=== PATIENT | male | born 1960 | race American Indian/Alaskan Native ===

== ENCOUNTER 2021-05-27 16:36 | Inpatient (IN) | payer MEDICAID ==
[2021-05-27] MEDS ORDERED: ALBUTEROL 2.5 MG/3 ML NEBU IH ONE (17:19)
[2021-05-27] MEDS ORDERED: IPRATROPIUM 0.02% NEBU 2.5 ML IH ONE (17:19)
[2021-05-27] MEDS ORDERED: FUROSEMIDE 40 MG/4 ML INJ IV ONE (17:19)
[2021-05-27] MEDS ORDERED: methylPREDNISolone Sod Succinate 125 MG/2 ML INJ IV ONE (17:20)
--- NOTE | 2021-05-27 17:47 | XRay Report ---
CHEST 1 VIEW 05/27/2021 5:22 PM INDICATION / CLINICAL INFORMATION: Dyspnea. COMPARISON: None available. FINDINGS: SUPPORT DEVICES: None. HEART / MEDIASTINUM: No significant abnormality. LUNGS / PLEURA: Mild patchy bilateral lower lung opacities. No pneumothorax. ADDITIONAL FINDINGS: No significant additional findings. IMPRESSION: 1. Mild patchy bilateral lower lung opacities that could indicate atypical pneumonia. Signer Name: Chris Hatch MD Signed: 05/27/2021 5:43 PM Workstation Name: [id number]
[2021-05-27 18:37] LABS: ABG Base Excess 2.3 mmol/L (-2.0-3.0); ABG HCO3 28.3 mmol/L (20.0-26.0); ABG Methemoglobin 0.5 % (0.0-1.5); ABG Oxygen Saturation 95.2 % (95.0-99.0); ABG PH 7.371 pH Units (7.350-7.450); ABG PO2 74.9 mm Hg (80.0-90.0)
[2021-05-27] MEDS ORDERED: cefTRIAXone/NS 1 GM/50 ML 1 GM/50 ML BAG IV ONE (18:38)
[2021-05-27] MEDS ORDERED: METOPROLOL TARTRATE 5 MG/5 ML INJ IV ONE ×2 (19:01→19:02)
[2021-05-27 19:03] LABS: Amphetamine Screen,Urine Negative; Benzodiazepines Screen,Urine Negative; Cannabinoid Screen,Urine Negative; Cocaine Screen,Urine Negative; Methadone Screen,Urine Negative; Opiate Screen,Urine Negative
[2021-05-27 19:08] LABS: Bilirubin,Urine NEG (Negative); Blood,Urine SM (Negative); Color,Urine Straw (Yellow); RBC,Urine < 1.0 /HPF (0.0-6.0); Urobilinogen,Urine < 2.0 mg/dL (<2.0)
[2021-05-27 19:46] LABS: Basophils # (Auto) 0.1 K/mm3 (0.0-0.1); Basophils % (Auto) 1.7 % (0.0-1.8); Eosinophils # (Auto) 0.1 K/mm3 (0.0-0.4); Eosinophils % (Auto) 1.2 % (0.0-4.3); Hematocrit 44.4 % (35.5-45.6); Hemoglobin 14.3 gm/dl (11.8-15.2); Lymphocytes # (Auto) 0.7 K/mm3 (1.2-5.4); Lymphocytes % (Auto) 15.6 % (13.4-35.0); Mean Corpuscular HGB Conc 32 % (32-34); Mean Corpuscular Volume 106 fl (84-94); Monocytes # (Auto) 0.4 K/mm3 (0.0-0.8); Monocytes % (Auto) 10.3 % (0.0-7.3); Platelet Count 263 K/mm3 (140-440); Red Blood Count 4.18 M/mm3 (3.65-5.03); Red Cell Distribution Width 16.5 % (13.2-15.2)
[2021-05-27 20:00] LABS: Creatine Kinase MB 4.5 ng/mL (0.0-4.0)
[2021-05-27 20:01] LABS: Albumin 3.5 g/dL (3.9-5); Calcium 8.8 mg/dL (8.4-10.2)
[2021-05-27 20:17] LABS: INR 1.03 (0.87-1.13)
[2021-05-27 21:10] LABS: Chol/HDL Ratio 2.21 %
[2021-05-27] MEDS ORDERED: AZITHROMYCIN/NS 500 MG/250 ML 500 MG/250 ML BAG IV ONE (22:06)
[2021-05-27] MEDS ORDERED: ASPIRIN 325 MG TAB PO ONE (22:14)
--- NOTE | 2021-05-27 22:14 | Emergency Department Report ---
ED Shortness of Breath HPI - General Chief Complaint: Dyspnea/Respdistress Stated Complaint: DIFFICULTY BREATHING Time Seen by Provider: 05/27/21 17:17 Source: patient, EMS Mode of arrival: Stretcher Limitations: No Limitations - History of Present Illness Initial Comments: SOB for he last 2 days , history of COPD and CHF , nofe deniz no rash MD Complaint: shortness of breath -: days(s) Worsens With: nothing Known History Of: COPD, congestive heart failure Associated Symptoms: denies other symptoms - Related Data Home Oxygen Therapy: Yes Home Oxygen Amount: 2 Liters Allergies Allergy/AdvReac Type Severity Reaction Status Date / Time No Known Allergies Allergy Verified 05/27/21 18:06 ED Review of Systems ROS: Stated complaint: DIFFICULTY BREATHING Other details as noted in HPI Constitutional: denies: chills, fever Eyes: denies: eye pain, eye discharge, vision change ENT: denies: ear pain, throat pain Respiratory: denies: cough, shortness of breath, wheezing Cardiovascular: denies: chest pain, palpitations Endocrine: no symptoms reported Gastrointestinal: denies: abdominal pain, nausea, diarrhea Genitourinary: denies: urgency, dysuria Musculoskeletal: denies: back pain, joint swelling, arthralgia Skin: denies: rash, lesions Neurological: denies: headache, weakness, paresthesias Psychiatric: denies: anxiety, depression Hematological/Lymphatic: denies: easy bleeding, easy bruising ED Past Medical Hx - Past Medical History Previous Medical History?: Yes Hx Hypertension: Yes Hx Congestive Heart Failure: Yes - Social History Smoking Status: Current Every Day Smoker ED Physical Exam - General Limitations: No Limitations General appearance: alert, in distress - Head Head exam: Present: atraumatic, normocephalic - Eye Eye exam: Present: normal appearance - ENT ENT exam: Present: mucous membranes moist - Neck Neck exam: Present: normal inspection - Respiratory Respiratory exam: Present: normal lung sounds bilaterally, rales, rhonchi - Cardiovascular Cardiovascular Exam: Present: normal rhythm, tachycardia. Absent: systolic murmur, diastolic murmur, rubs, gallop - GI/Abdominal GI/Abdominal exam: Present: soft, normal bowel sounds - Rectal Rectal exam: Present: deferred - Extremities Exam Extremities exam: Present: normal inspection - Back Exam Back exam: Present: normal inspection - Neurological Exam Neurological exam: Present: alert, oriented X3 - Psychiatric Psychiatric exam: Present: normal affect, normal mood - Skin Skin exam: Present: warm, dry, intact, normal color. Absent: rash ED Course Vital Signs 05/27/21 05/27/21 05/27/21 16:48 17:00 17:20 Temperature Pulse Rate 116 H 117 H 111 H Pulse Rate [ Anterior Bilateral Throughout] Respiratory 23 29 H 33 H Rate Respiratory Rate [Anterior Bilateral Throughout] Blood Pressure 168/110 180/119 O2 Sat by Pulse 100 92 91 Oximetry 05/27/21 05/27/21 05/27/21 17:34 17:41 17:54 Temperature Pulse Rate Pulse Rate [ 112 H Anterior Bilateral Throughout] Respiratory Rate Respiratory 22 Rate [Anterior Bilateral Throughout] Blood Pressure 180/119 O2 Sat by Pulse 94 96 Oximetry 05/27/21 05/27/21 05/27/21 18:29 18:30 19:00 Temperature 97.8 F Pulse Rate 113 H 114 H Pulse Rate [ Anterior Bilateral Throughout] Respiratory 30 H 25 H Rate Respiratory Rate [Anterior Bilateral Throughout] Blood Pressure 171/111 160/108 O2 Sat by Pulse 99 90 Oximetry 05/27/21 05/27/21 05/27/21 19:06 19:16 19:30 Temperature Pulse Rate 120 H Pulse Rate [ Anterior Bilateral Throughout] Respiratory Rate Respiratory Rate [Anterior Bilateral Throughout] Blood Pressure 170/111 160/108 161/114 O2 Sat by Pulse 95 97 Oximetry 05/27/21 05/27/21 05/27/21 19:46 20:03 20:15 Temperature Pulse Rate 105 H Pulse Rate [ Anterior Bilateral Throughout] Respiratory 15 Rate Respiratory Rate [Anterior Bilateral Throughout] Blood Pressure 161/114 162/107 180/134 O2 Sat by Pulse 96 96 Oximetry 05/27/21 05/27/21 05/27/21 20:30 20:46 21:00 Temperature Pulse Rate 105 H 106 H 107 H Pulse Rate [ Anterior Bilateral Throughout] Respiratory 27 H 24 14 Rate Respiratory Rate [Anterior Bilateral Throughout] Blood Pressure 192/114 185/110 185/110 O2 Sat by Pulse 97 93 89 Oximetry 05/27/21 05/27/21 21:16 21:45 Temperature Pulse Rate 105 H Pulse Rate [ Anterior Bilateral Throughout] Respiratory 18 Rate Respiratory Rate [Anterior Bilateral Throughout] Blood Pressure 185/110 185/110 O2 Sat by Pulse 90 78 L Oximetry - Reevaluation(s) Reevaluation #1: 05/27/21 22:11 work up showed , pneumonia cultures and abx given , BP elevated BP meds given and rt and lasix, will admit , trop is leevated with renal imapirment asprin given no chets pain ED Medical Decision Making - Lab Data Result diagrams: 05/27/21 17:34 05/27/21 17:34 - EKG Data -: EKG Interpreted by Me EKG shows normal: sinus rhythm Rate: tachycardia - EKG Data When compared to previous EKG there are: previous EKG unavailable Interpretation: nonspecific ST-T wave yvette, [facility] Critical care attestation.: If time is entered above; I have spent that time in minutes in the direct care of this critically ill patient, excluding procedure time. ED Disposition Clinical Impression: SOB (shortness of breath), Pneumonia, CHF (congestive heart failure) Disposition: ADMITTED INPATIENT Is pt being admited?: Yes Does the pt Need Aspirin: Yes Condition: Stable Instructions: Bacterial Pneumonia (ED)
[2021-05-27] MEDS ORDERED: MAGNESIUM HYDROXIDE (MOM) ORAL LIQD UDC PO PRN (22:19)
[2021-05-27] MEDS ORDERED: MORPHINE 4 MG/1 ML INJ IV PRN (22:19)
[2021-05-27] MEDS ORDERED: MORPHINE 2 MG/1 ML INJ IV PRN ×2 (22:19)
[2021-05-27] MEDS ORDERED: ACETAMINOPHEN 325 MG TAB PO PRN (22:19)
[2021-05-27] MEDS ORDERED: NITROGLYCERIN 0.4 MG TAB SUBL SL PRN (22:19)
[2021-05-27] MEDS ORDERED: ONDANSETRON 4 MG/2 ML INJ IV PRN (22:19)
--- NOTE | 2021-05-27 22:39 | History and Physical Report ---
History of Present Illness Date of examination: 05/27/21 Date of admission: 05/27/2021 Chief complaint: Shortness of Breath History of present illness: 61-year-old -[place] male with known history of COPD and congestive heart failure presenting to the emergency room today with a 2-day history of shortness of breath. Patient denies any chest pain, no fever or chills, no nausea vomiting and no abdominal pain. He denies any headache or dizziness and denies any diaphoresis. Patient states he has been out of his diuretic for about 4 to 5 days. He denies any sick contacts and no recent travel. Denies any contact with anyone with COVID-19. Patient states he has been vaccinated against COVID-19. Upon arrival in the emergency room patient was tachycardic and tachypneic with elevated blood pressure. Work-up in the emergency room today, chest x-ray reveals marked patchy bilateral lower lung opacities which could indicate atypical pneumonia. Labs shows a BNP of 6875, troponin of 0.063, BUN of 41 and creatinine of 2.7, UDS was negative. Patient was given some nebulizing treatments, steroids, IV Lasix and antibiotics in the emergency room. Past History Past Medical History: COPD, diabetes, hypertension Past Surgical History: No surgical history Social history: smoking (Current daily smoker) Family history: no significant family history Medications and Allergies Allergies Allergy/AdvReac Type Severity Reaction Status Date / Time No Known Allergies Allergy Verified 05/27/21 18:06 Active Meds: Active Medications Acetaminophen (Acetaminophen 325 Mg Tab) 650 mg PO Q4H PRN PRN Reason: Pain MILD(1-3)/Fever >100.5/BENOIT Aspirin (Aspirin 325 Mg Tab) 325 mg PO QDAY SONIA Azithromycin (Azithromycin 250 Mg Tab) 500 mg PO QDAY SONIA; Protocol Furosemide (Furosemide 40 Mg/4 Ml Inj) 40 mg IV BID@0600,1800 SONIA Azithromycin (Zithromax/Ns) 500 mg in 250 mls @ 250 mls/hr IV ONCE ONE; Protocol Stop: 05/27/21 23:05 Ceftriaxone Sodium (Rocephin/Ns 2 Gm/100 Ml) 2 gm in 100 mls @ 200 mls/hr IV Q24H SONIA; Protocol Magnesium Hydroxide (Magnesium Hydroxide (Mom) Oral Liqd Udc) 30 ml PO Q4H PRN PRN Reason: Constipation Morphine Sulfate (Morphine 2 Mg/1 Ml Inj) 2 mg IV Q4H PRN PRN Reason: Pain, Moderate (4-6) Morphine Sulfate (Morphine 4 Mg/1 Ml Inj) 4 mg IV Q4H PRN PRN Reason: Pain , Severe (7-10) Morphine Sulfate (Morphine 2 Mg/1 Ml Inj) 2 mg IV Q5MIN PRN PRN Reason: Chest Pain unrelieved by NTG Nitroglycerin (Nitroglycerin 0.4 Mg Tab Subl) 0.4 mg SL .Q5MIN PRN PRN Reason: Chest Pain Ondansetron HCl (Ondansetron 4 Mg/2 Ml Inj) 4 mg IV Q8H PRN PRN Reason: Nausea And Vomiting Sodium Chloride (Sodium Chloride 0.9% 10 Ml Flush Syringe) 10 ml IV BID SONIA Sodium Chloride (Sodium Chloride 0.9% 10 Ml Flush Syringe) 10 ml IV PRN PRN PRN Reason: LINE FLUSH Sodium Chloride (Sodium Chloride 0.9% 10 Ml Flush Syringe) 10 ml IV PRN PRN PRN Reason: LINE FLUSH Review of Systems Constitutional: no fever, no chills Ears, nose, mouth and throat: no nasal congestion, no sore throat Cardiovascular: edema, dyspnea on exertion, no chest pain, no palpitations Respiratory: shortness of breath, no cough Gastrointestinal: no nausea, no vomiting, no diarrhea Genitourinary Male: no hematuria, no nocturia Musculoskeletal: no neck pain, no low back pain Integumentary: no rash, no pruritis Neurological: no headaches, no confusion Psychiatric: no anxiety, no depression Endocrine: no polydipsia, no polyuria, no nocturia Exam - Constitutional Vitals: Temp Pulse Resp BP Pulse Ox 97.8 F 105 H 18 185/110 78 L 05/27/21 18:29 05/27/21 21:16 05/27/21 21:16 05/27/21 21:45 05/27/21 21:45 General appearance: Present: no acute distress, well-nourished - EENT Eyes: Present: PERRL, EOM intact. Absent: scleral icterus ENT: hearing intact, clear oral mucosa, dentition normal - Neck Neck: Present: supple, normal ROM - Respiratory Respiratory effort: normal Respiratory: bilateral: rales - Cardiovascular Rhythm: regular Heart Sounds: Present: S1 & S2. Absent: systolic murmur, diastolic murmur, rub, click - Extremities Extremities: no ischemia, pulses intact, pulses symmetrical, normal temperature, normal color, Full ROM Extremity abnormal: edema (3+bilateral lower extremity edema) Peripheral Pulses: within normal limits - Abdominal General gastrointestinal: Present: soft, non-tender, non-distended, normal bowel sounds. Absent: mass - Integumentary Integumentary: Present: clear, warm, dry, normal turgor. Absent: rash - Musculoskeletal Musculoskeletal: strength equal bilaterally - Psychiatric Psychiatric: appropriate mood/affect, intact judgment & insight, memory intact, cooperative - Neurologic Neurologic: CNII-XII intact, no focal deficits, moves all extremities HEART Score - HEART Score Troponin: Troponin T 0.063 ng/mL (0.00-0.029) H 05/27/21 17:34 Results - Labs CBC & Chem 7: 05/27/21 22:51 05/27/21 22:51 Labs: Abnormal lab results 05/27/21 05/27/21 05/27/21 Range/Units 17:19 17:34 17:34 WBC 4.3 L (4.5-11.0) K/mm3 MCV 106 H (84-94) fl MCH 34 H (28-32) pg RDW 16.5 H (13.2-15.2) % [place] % (Auto) 10.3 H (0.0-7.3) % Lymph # (Auto) 0.7 L (1.2-5.4) K/mm3 Seg Neutrophils % 71.2 H (40.0-70.0) % ABG pO2 74.9 L (80.0-90.0) mm Hg ABG HCO3 28.3 H (20.0-26.0) mmol/L ABG Hemoglobin 12.3 L (14.0-18.0) gm/dl Oxyhemoglobin 90.7 L (95.0-99.0) % BUN 41 H (9-20) mg/dL Creatinine 2.7 H (0.8-1.3) mg/dL Glucose 102 H (75-100) mg/dL Alkaline Phosphatase 194 H (35-129) units/L CK-MB (CK-2) 4.5 H (0.0-4.0) ng/mL CK-MB (CK-2) Rel Index 5.7 H (0-4) Troponin T 0.063 H (0.00-0.029) ng/mL Albumin 3.5 L (3.9-5) g/dL HDL Cholesterol 69 H (40-59) mg/dL Assessment and Plan - Patient Problems (1) CHF (congestive heart failure) Current Visit: No Status: Inactive Plan to address problem: Patient placed on diuretics. We will monitor inputs and outputs and also monitor daily weight. Patient will be scheduled for echocardiogram. (2) Pneumonia Current Visit: No Status: Inactive Plan to address problem: Patient placed on empiric IV antibiotics. We will also check for COVID-19. (3) EWA (acute kidney injury) Current Visit: No Status: Acute Plan to address problem: Baseline BUN and creatinine unknown. We will monitor. Consult placed to nephrology for evaluation and recommen dations. (4) Elevated troponin Current Visit: No Status: Acute Plan to address problem: Possibly troponin leak. No Ischemic changes on EKG We will trend troponin levels. Consult placed to cardiology for evaluation. (5) History of COPD Current Visit: No Status: Acute Plan to address problem: We will place on nebulizing treatments as needed. (6) DVT prophylaxis Current Visit: No Status: Acute Plan to address problem: Patient placed on subcutaneous heparin. (7) Full code status Current Visit: No Status: Acute Plan to address problem: Patient is full code.
[2021-05-27 23:16] LABS: Hematocrit 44.7 % (35.5-45.6); Hemoglobin 14.3 gm/dl (11.8-15.2); Mean Corpuscular HGB Conc 32 % (32-34); Mean Corpuscular Volume 106 fl (84-94); Platelet Count 273 K/mm3 (140-440); Red Blood Count 4.21 M/mm3 (3.65-5.03); Red Cell Distribution Width 16.2 % (13.2-15.2)
[2021-05-27] MEDS ORDERED: hydrALAZINE 20 MG/1 ML INJ IV ONE (23:42)
[2021-05-28 02:30] LABS: Anisocytosis 1+; Eosinophils % (Manual) 0 % (0.0-4.3); Platelet Estimate Consistent w Auto; Total Cells Counted 100
[2021-05-28] MEDS: FUROSEMIDE 40 MG/4 ML INJ IV SCH ×2 (05:57→22:20)
[2021-05-28 06:23] LABS: Hemoglobin 13.4 gm/dl (11.8-15.2); Mean Corpuscular HGB Conc 32 % (32-34); Mean Corpuscular Volume 106 fl (84-94); Platelet Count 264 K/mm3 (140-440); Red Blood Count 3.96 M/mm3 (3.65-5.03); Red Cell Distribution Width 16.6 % (13.2-15.2)
[2021-05-28 06:38] LABS: Calcium 9.2 mg/dL (8.4-10.2)
[2021-05-28 07:55] LABS: C-Reactive Protein 2.7 mg/dL (0.00-1.30)
[2021-05-28 08:20] LABS: Anisocytosis 1+; Band Neutrophils # (Manual) 0.1 K/mm3; Basophils % (Manual) 0 % (0.0-1.8); Monocytes % (Manual) 0 % (0.0-7.3); Platelet Estimate Consistent w Auto; Total Cells Counted 100
[2021-05-28] MEDS: cefTRIAXone/NS 2 GM/100 ML 2 GM/100 ML BAG IV SCH (10:55)
[2021-05-28] MEDS: ASPIRIN 325 MG TAB PO SCH (10:55)
[2021-05-28] MEDS: AZITHROMYCIN 250 MG TAB PO SCH (10:55)
--- NOTE | 2021-05-28 11:03 | Progress Note ---
Assessment and Plan 61-year-old -[place] male with known history of COPD and congestive heart failure presented to the emergency room with a 2-day history of shortness of breath. Patient states he has been out of his diuretic for about 4 to 5 days. Upon arrival in the emergency room patient was tachycardic and tachypneic with elevated blood pressure. Work-up in the emergency room reveals chest x-ray with marked patchy bilateral lower lung opacities which could indicate atypical pneumonia. Labs shows a BNP of 6875, troponin of 0.063, BUN of 41 and creatinine of 2.7, UDS was negative. Patient was given some nebulizing treatments, steroids, IV Lasix and antibiotics in the emergency room and admitted for further management. Assessment and plan: --Acute on chronic CHF (congestive heart failure) exacerbation Patient placed on diuretics. We will monitor inputs and outputs and also monitor daily weight. Patient will be scheduled for echocardiogram. --Pneumonia, versus pulmonary edema Patient placed on empiric IV antibiotics and diuretics. Negative for COVID-19. -- EWA (acute kidney injury) on CKD stage III Likely vasomotor nephropathy Baseline BUN and creatinine unknown. We will monitor. Consult placed to nephrology for evaluation and recommendations. -- Elevated troponin/NSTEMI type II Possibly troponin leak. No Ischemic changes on EKG We will trend troponin levels. Consult placed to cardiology for evaluation. -- History of COPD We will place on nebulizing treatments as needed and supplemental O2 -- DVT prophylaxis Patient placed on subcutaneous heparin. -- Full code status Daily clinical course: 05/28: Patient is negative for Covid, continue nebulizer breathing treatment, IV diuresis, monitor ins and O's and daily weight. Continue supplemental O2 and wean off as tolerated. Continue to treat for CHF exacerbation. Cardiology following. Subjective Date of service: 05/28/21 Interval history: Patient seen and examined. Medical records and medication list reviewed. No acute event overnight noted by the RN. Patient complains of difficulty breathing even on resting. Patient is toleratin g diet. Discussed plan of care at bedside with patient. Objective - Exam Narrative Exam: GENERAL: well-developed and well-nourished elderly -[place] male lying on bed appeared to be in no discomfort. HEENT: Normocephalic. Atraumatic. No conjunctival congestion or icterus. Patient has moist mucous membranes. NECK: Supple. Trachea midline. CHEST/LUNGS: Crackles auscultated bilaterally, breathing nonlabored. No wheezes HEART/CARDIOVASCULAR: Regular in rate and rhythm. S1 and S2 positive. ABDOMEN: Abdomen is soft, nontender. Patient has normal bowel sounds. SKIN: There is no rash. Warm and dry. NEURO: No focal motor deficit. Follows command. MUSCULOSKELETAL: No joint effusion or tenderness. EXTRIMITY: +ve edema, no cyanosis or clubbing. PSYCH: Cooperative. - Constitutional Vitals: Vital Signs - 12hr 05/27/21 05/27/21 05/27/21 23:15 23:31 23:45 Temperature Pulse Rate 104 H 107 H 105 H Respiratory 22 16 24 Rate Blood Pressure 173/107 166/112 166/112 O2 Sat by Pulse 98 96 97 Oximetry 05/27/21 05/27/21 05/28/21 23:52 23:59 00:01 Temperature Pulse Rate 107 H 108 H 103 H Respiratory 27 H 26 H Rate Blood Pressure 165/103 161/94 161/94 O2 Sat by Pulse 97 96 Oximetry 05/28/21 05/28/21 05/28/21 00:15 00:31 00:45 Temperature Pulse Rate 109 H 113 H 105 H Respiratory 19 18 15 Rate Blood Pressure 161/94 141/87 141/87 O2 Sat by Pulse 96 98 99 Oximetry 05/28/21 05/28/21 05/28/21 02:13 04:10 07:19 Temperature 98.1 F 98.1 F Pulse Rate 107 H 104 H 107 H Respiratory 20 20 Rate Blood Pressure 158/86 169/96 154/102 O2 Sat by Pulse 96 90 94 Oximetry 05/28/21 07:21 Temperature 97.3 F L Pulse Rate Respiratory 18 Rate Blood Pressure 154/102 O2 Sat by Pulse Oximetry - Labs CBC & Chem 7: 05/30/21 06:20 05/29/21 05:21 Labs: Abnormal lab results 05/27/21 05/27/21 05/27/21 Range/Units 17:19 17:34 17:34 WBC 4.3 L (4.5-11.0) K/mm3 MCV 106 H (84-94) fl MCH 34 H (28-32) pg RDW 16.5 H (13.2-15.2) % [place] % (Auto) 10.3 H (0.0-7.3) % Lymph # (Auto) 0.7 L (1.2-5.4) K/mm3 Seg Neutrophils % 71.2 H (40.0-70.0) % Seg Neuts % (Manual) (40.0-70.0) % Lymphocytes % (Manual) (13.4-35.0) % Lymphocytes # (Manual) (1.2-5.4) K/mm3 D-Dimer (0-234) ng/mlDDU ABG pO2 74.9 L (80.0-90.0) mm Hg ABG HCO3 28.3 H (20.0-26.0) mmol/L ABG Hemoglobin 12.3 L (14.0-18.0) gm/dl Oxyhemoglobin 90.7 L (95.0-99.0) % Chloride (98-107) mmol/L BUN 41 H (9-20) mg/dL Creatinine 2.7 H (0.8-1.3) mg/dL Glucose 102 H (75-100) mg/dL POC Glucose (70-105) mg/dL Alkaline Phosphatase 194 H (35-129) units/L CK-MB (CK-2) 4.5 H (0.0-4.0) ng/mL CK-MB (CK-2) Rel Index 5.7 H (0-4) Troponin T 0.063 H (0.00-0.029) ng/mL C-Reactive Protein (0.00-1.30) mg/dL NT-Pro-B Natriuret Pep (0-900) pg/mL Albumin 3.5 L (3.9-5) g/dL HDL Cholesterol 69 H (40-59) mg/dL 05/27/21 05/27/21 05/27/21 Range/Units 22:51 22:51 22:51 WBC (4.5-11.0) K/mm3 MCV 106 H (84-94) fl MCH 34 H (28-32) pg RDW 16.2 H (13.2-15.2) % [place] % (Auto) (0.0-7.3) % Lymph # (Auto) (1.2-5.4) K/mm3 Seg Neutrophils % (40.0-70.0) % Seg Neuts % (Manual) 94.0 H (40.0-70.0) % Lymphocytes % (Manual) 3.0 L (13.4-35.0) % Lymphocytes # (Manual) 0.1 L (1.2-5.4) K/mm3 D-Dimer (0-234) ng/mlDDU ABG pO2 (80.0-90.0) mm Hg ABG HCO3 (20.0-26.0) mmol/L ABG Hemoglobin (14.0-18.0) gm/dl Oxyhemoglobin (95.0-99.0) % Chloride (98-107) mmol/L BUN 41 H (9-20) mg/dL Creatinine 2.6 H (0.8-1.3) mg/dL Glucose 129 H (75-100) mg/dL POC Glucose (70-105) mg/dL Alkaline Phosphatase (35-129) units/L CK-MB (CK-2) (0.0-4.0) ng/mL CK-MB (CK-2) Rel Index (0-4) Troponin T (0.00-0.029) ng/mL C-Reactive Protein (0.00-1.30) mg/dL NT-Pro-B Natriuret Pep 6875 H (0-900) pg/mL Albumin (3.9-5) g/dL HDL Cholesterol (40-59) mg/dL 05/28/21 05/28/21 05/28/21 Range/Units 05:42 05:42 05:42 WBC 3.1 L (4.5-11.0) K/mm3 MCV 106 H (84-94) fl MCH 34 H (28-32) pg RDW 16.6 H (13.2-15.2) % [place] % (Auto) (0.0-7.3) % Lymph # (Auto) (1.2-5.4) K/mm3 Seg Neutrophils % (40.0-70.0) % Seg Neuts % (Manual) 91.0 H (40.0-70.0) % Lymphocytes % (Manual) 4.0 L (13.4-35.0) % Lymphocytes # (Manual) 0.1 L (1.2-5.4) K/mm3 D-Dimer (0-234) ng/mlDDU ABG pO2 (80.0-90.0) mm Hg ABG HCO3 (20.0-26.0) mmol/L ABG Hemoglobin (14.0-18.0) gm/dl Oxyhemoglobin (95.0-99.0) % Chloride 97.7 L (98-107) mmol/L BUN 46 H (9-20) mg/dL Creatinine 2.5 H (0.8-1.3) mg/dL Glucose 245 H (75-100) mg/dL POC Glucose (70-105) mg/dL Alkaline Phosphatase (35-129) units/L CK-MB (CK-2) (0.0-4.0) ng/mL CK-MB (CK-2) Rel Index (0-4) Troponin T 0.038 H D (0.00-0.029) ng/mL C-Reactive Protein (0.00-1.30) mg/dL NT-Pro-B Natriuret Pep (0-900) pg/mL Albumin (3.9-5) g/dL HDL Cholesterol (40-59) mg/dL 05/28/21 05/28/21 05/28/21 Range/Units 05:42 05:42 07:20 WBC (4.5-11.0) K/mm3 MCV (84-94) fl MCH (28-32) pg RDW (13.2-15.2) % [place] % (Auto) (0.0-7.3) % Lymph # (Auto) (1.2-5.4) K/mm3 Seg Neutrophils % (40.0-70.0) % Seg Neuts % (Manual) (40.0-70.0) % Lymphocytes % (Manual) (13.4-35.0) % Lymphocytes # (Manual) (1.2-5.4) K/mm3 D-Dimer 878.94 H (0-234) ng/mlDDU ABG pO2 (80.0-90.0) mm Hg ABG HCO3 (20.0-26.0) mmol/L ABG Hemoglobin (14.0-18.0) gm/dl Oxyhemoglobin (95.0-99.0) % Chloride (98-107) mmol/L BUN (9-20) mg/dL Creatinine (0.8-1.3) mg/dL Glucose 241 H (75-100) mg/dL POC Glucose 191 H (70-105) mg/dL Alkaline Phosphatase (35-129) units/L CK-MB (CK-2) (0.0-4.0) ng/mL CK-MB (CK-2) Rel Index (0-4) Troponin T (0.00-0.029) ng/mL C-Reactive Protein 2.70 H (0.00-1.30) mg/dL NT-Pro-B Natriuret Pep (0-900) pg/mL Albumin (3.9-5) g/dL HDL Cholesterol (40-59) mg/dL HEART Score - HEART Score Troponin: Troponin T 0.038 ng/mL (0.00-0.029) H D 05/28/21 05:42
--- NOTE | 2021-05-28 12:09 | Consultation ---
History of Present Illness - Reason for Consult Consult date: 05/28/21 - History of Present Illness 61yr M presented to ED c/o SOB & LE swelling. Pt admits to h/o Renal Insufficiency, f/u at [facility] Past History Past Medical History: COPD, diabetes, hypertension, renal failure Past Surgical History: No surgical history Social history: smoking (Current daily smoker) Family history: no significant family history Medications and Allergies Allergies Allergy/AdvReac Type Severity Reaction Status Date / Time No Known Allergies Allergy Verified 05/27/21 18:06 Active Meds: Active Medications Acetaminophen (Acetaminophen 325 Mg Tab) 650 mg PO Q4H PRN PRN Reason: Pain MILD(1-3)/Fever >100.5/BENOIT Aspirin (Aspirin 325 Mg Tab) 325 mg PO QDAY [facility] Last Admin: 05/28/21 10:55 Dose: 325 mg Azithromycin (Azithromycin 250 Mg Tab) 500 mg PO QDAY [facility]; Protocol Last Admin: 05/28/21 10:55 Dose: 500 mg Furosemide (Furosemide 40 Mg/4 Ml Inj) 40 mg IV BID@0600,1800 [facility] Last Admin: 05/28/21 05:57 Dose: 40 mg Ceftriaxone Sodium (Rocephin/Ns 2 Gm/100 Ml) 2 gm in 100 mls @ 200 mls/hr IV Q24HR [facility]; Protocol Last Admin: 05/28/21 10:55 Dose: 200 mls/hr Magnesium Hydroxide (Magnesium Hydroxide (Mom) Oral Liqd Udc) 30 ml PO Q4H PRN PRN Reason: Constipation Morphine Sulfate (Morphine 2 Mg/1 Ml Inj) 2 mg IV Q4H PRN PRN Reason: Pain, Moderate (4-6) Morphine Sulfate (Morphine 4 Mg/1 Ml Inj) 4 mg IV Q4H PRN PRN Reason: Pain , Severe (7-10) Morphine Sulfate (Morphine 2 Mg/1 Ml Inj) 2 mg IV Q5MIN PRN PRN Reason: Chest Pain unrelieved by NTG Nitroglycerin (Nitroglycerin 0.4 Mg Tab Subl) 0.4 mg SL .Q5MIN PRN PRN Reason: Chest Pain Ondansetron HCl (Ondansetron 4 Mg/2 Ml Inj) 4 mg IV Q8H PRN PRN Reason: Nausea And Vomiting Sodium Chloride (Sodium Chloride 0.9% 10 Ml Flush Syringe) 10 ml IV BID [facility] Last Admin: 05/28/21 10:55 Dose: 10 ml Sodium Chloride (Sodium Chloride 0.9% 10 Ml Flush Syringe) 10 ml IV PRN PRN PRN Reason: LINE FLUSH Review of Systems Ears, nose, mouth and throat: no sore throat Cardiovascular: leg edema, no chest pain, no orthopnea, no palpitations Respiratory: shortness of breath, no cough, no hemoptysis Gastrointestinal: no nausea, no vomiting, no diarrhea, no constipation Genitourinary Male: no dysuria, no hematuria, no flank pain, no urinary frequency, no urinary hesitancy Exam - Vital Signs Vital signs: Vital Signs Pulse Resp Pulse Ox 116 H 23 100 05/27/21 16:48 05/27/21 16:48 05/27/21 16:48 - General Appearance General appearance: other (Awake & verbally responsive) EENT: PERRL, hearing intact Neck: Present: neck supple. Absent: JVD/HJR Respiratory: Rales Heart: regular, S1S2 Gastrointestinal: Present: normal Integumentary: no rash, warm and dry Neurologic: no focal deficit Musculoskeletal: Present: other (LE Edema) Results - Lab Results 05/28/21 05:42 05/28/21 05:42 Most recent lab results ABG pH 7.371 pH Units (7.350-7.450) 05/27/21 17:19 ABG pCO2 50.0 mm Hg 05/27/21 17:19 ABG pO2 74.9 mm Hg (80.0-90.0) L 05/27/21 17:19 ABG HCO3 28.3 mmol/L (20.0-26.0) H 05/27/21 17:19 ABG O2 Saturation 95.2 % (95.0-99.0) 05/27/21 17:19 Calcium 9.2 mg/dL (8.4-10.2) 05/28/21 05:42 Magnesium 1.90 mg/dL (1.7-2.3) 05/27/21 17:34 Assessment and Plan Acute on CKD - Likely 2/2 HTN +/- Cardiac dz CKD - Currently Stage3 HTN - Uncontrolled LE Edema - ?Renal Vs Cardiac etiology H/o CHF Pneumonia per cxr H/o COPD Plan: Spot Urine - See orders Renal u/s IV Diuretics, f/u urine output & Renal fxn Review meds & adjust as necessary Echo
--- NOTE | 2021-05-28 13:42 | Ultrasound Report ---
ULTRASOUND RENAL INDICATION: EWA / CKD. COMPARISON: No relevant prior imaging study available. FINDINGS: RIGHT KIDNEY: Size: 9.6 cm. Echogenicity: Normal. Cortical thickness: Normal. Stones: None. Hydronephrosis: None. Cyst or mass: 1.0 cm cyst in the midpole. LEFT KIDNEY: Size: 9.2 cm. Echogenicity: Normal. Cortical thickness: Normal. Stones: None. Hydronephrosis: None. Cyst or mass: None. Urinary Bladder: No significant abnormality. Free Fluid: None. Additional Findings: None. IMPRESSION 1. No acute sonographic abnormality of the kidneys. Signer Name: Chris Hatch MD Signed: 05/28/2021 1:38 PM Workstation Name: [id number]
--- NOTE | 2021-05-28 18:01 | Consultation ---
History of Present Illness Consult date: 05/28/21 Requesting physician: RONAN PRICE Consult reason: congestive heart failure, elevated troponin History of present illness: Pt is a 61-year-old AA male with a hx of HF (unknown EF) who presented with complaints of progressively worsening SOB/orthopnea and BLE edema x 3 days. Pt is followed by [facility]. He reports taking Lasix at home and states he ran out approximately 4-5 days prior to arrival. ProBNP elevated > 6k. CXR reveals mild patchy lower lung opacities. Past History Past Medical History: COPD, diabetes, hypertension, renal failure Past Surgical History: No surgical history Social history: smoking (Current daily smoker) Family history: no significant family history Medications and Allergies Allergies Allergy/AdvReac Type Severity Reaction Status Date / Time No Known Allergies Allergy Verified 05/27/21 18:06 Active Meds: Active Medications Acetaminophen (Acetaminophen 325 Mg Tab) 650 mg PO Q4H PRN PRN Reason: Pain MILD(1-3)/Fever >100.5/BENOIT Aspirin (Aspirin 325 Mg Tab) 325 mg PO QDAY [facility] Last Admin: 05/28/21 10:55 Dose: 325 mg Azithromycin (Azithromycin 250 Mg Tab) 500 mg PO QDAY [facility]; Protocol Last Admin: 05/28/21 10:55 Dose: 500 mg Furosemide (Furosemide 40 Mg/4 Ml Inj) 40 mg IV BID@0600,1800 [facility] Last Admin: 05/28/21 05:57 Dose: 40 mg Ceftriaxone Sodium (Rocephin/Ns 2 Gm/100 Ml) 2 gm in 100 mls @ 200 mls/hr IV Q24HR [facility]; Protocol Last Admin: 05/28/21 10:55 Dose: 200 mls/hr Magnesium Hydroxide (Magnesium Hydroxide (Mom) Oral Liqd Udc) 30 ml PO Q4H PRN PRN Reason: Constipation Morphine Sulfate (Morphine 2 Mg/1 Ml Inj) 2 mg IV Q4H PRN PRN Reason: Pain, Moderate (4-6) Morphine Sulfate (Morphine 4 Mg/1 Ml Inj) 4 mg IV Q4H PRN PRN Reason: Pain , Severe (7-10) Morphine Sulfate (Morphine 2 Mg/1 Ml Inj) 2 mg IV Q5MIN PRN PRN Reason: Chest Pain unrelieved by NTG Nitroglycerin (Nitroglycerin 0.4 Mg Tab Subl) 0.4 mg SL .Q5MIN PRN PRN Reason: Chest Pain Ondansetron HCl (Ondansetron 4 Mg/2 Ml Inj) 4 mg IV Q8H PRN PRN Reason: Nausea And Vomiting Sodium Chloride (Sodium Chloride 0.9% 10 Ml Flush Syringe) 10 ml IV BID [facility] Last Admin: 05/28/21 10:55 Dose: 10 ml Sodium Chloride (Sodium Chloride 0.9% 10 Ml Flush Syringe) 10 ml IV PRN PRN PRN Reason: LINE FLUSH Review of Systems Constitutional: no fever, no chills Ears, nose, mouth and throat: no nasal congestion Cardiovascular: orthopnea, edema, shortness of breath, dyspnea on exertion, paroxysmal nocturnal dyspnea, no chest pain, no palpitations, no syncope, no lightheadedness Respiratory: shortness of breath, dyspnea on exertion, no cough Gastrointestinal: no nausea, no vomiting Genitourinary Male: no dysuria Musculoskeletal: no myalgias Integumentary: no rash, no wounds Neurological: no numbness, no tingling, no seizures, no syncope Endocrine: no polydipsia, no polyuria Hematologic/Lymphatic: no easy bruising, no easy bleeding Allergic/Immunologic: no anaphylaxis Physical Examination Vital Signs Pulse Resp Pulse Ox 116 H 23 100 05/27/21 16:48 05/27/21 16:48 05/27/21 16:48 General appearance: no acute distress HEENT: Positive: EOMI, Normocephaly Neck: Positive: neck supple, trachea midline Cardiac: Positive: Reg Rate and Rhythm, S1/S2 Lungs: Positive: Rales Neuro: Positive: Grossly Intact Abdomen: Positive: Soft. Negative: Tender Skin: Negative: Rash Musculoskeletal: No Pain Extremities: Present: edema (BLE), warm Results 05/28/21 05:42 05/28/21 05:42 Cardiac Enzymes 05/27/21 05/28/21 Range/Units 17:34 05:42 AST 27 (5-40) units/L Lactate Dehydrogenase 175 (91-180) units/L CK-MB (CK-2) 4.5 H (0.0-4.0) ng/mL Coagulation 05/27/21 Range/Units 17:34 PT 14.6 (12.2-14.9) Sec. INR 1.03 (0.87-1.13) Lipids 05/27/21 Range/Units 17:34 Triglycerides 113 (2-149) mg/dL Cholesterol 153 (50-199) mg/dL HDL Cholesterol 69 H (40-59) mg/dL Cholesterol/HDL Ratio 2.21 % CBC 05/27/21 05/27/21 05/28/21 Range/Units 17:34 22:51 05:42 WBC 4.3 L 4.9 3.1 L (4.5-11.0) K/mm3 RBC 4.18 4.21 3.96 (3.65-5.03) M/mm3 Hgb 14.3 14.3 13.4 (11.8-15.2) gm/dl Hct 44.4 44.7 42.0 (35.5-45.6) % Plt Count 263 273 264 (140-440) K/mm3 Lymph # (Auto) 0.7 L (1.2-5.4) K/mm3 [place] # (Auto) 0.4 (0.0-0.8) K/mm3 Eos # (Auto) 0.1 (0.0-0.4) K/mm3 Baso # (Auto) 0.1 (0.0-0.1) K/mm3 Comprehensive Metabolic Panel 05/27/21 05/27/21 05/28/21 Range/Units 17:34 22:51 05:42 Sodium 141 141 138 (137-145) mmol/L Potassium 4.8 4.5 4.6 (3.6-5.0) mmol/L Chloride 101.6 99.9 97.7 L (98-107) mmol/L Carbon Dioxide 23 23 26 (22-30) mmol/L BUN 41 H 41 H 46 H (9-20) mg/dL Creatinine 2.7 H 2.6 H 2.5 H (0.8-1.3) mg/dL Glucose 102 H 129 H 245 H (75-100) mg/dL Calcium 8.8 9.0 9.2 (8.4-10.2) mg/dL AST 27 (5-40) units/L ALT 23 (7-56) units/L Alkaline Phosphatase 194 H (35-129) units/L Total Protein 7.5 (6.3-8.2) g/dL Albumin 3.5 L (3.9-5) g/dL 05/28/21 Range/Units 05:42 Sodium (137-145) mmol/L Potassium (3.6-5.0) mmol/L Chloride (98-107) mmol/L Carbon Dioxide (22-30) mmol/L BUN (9-20) mg/dL Creatinine (0.8-1.3) mg/dL Glucose 241 H (75-100) mg/dL Calcium (8.4-10.2) mg/dL AST (5-40) units/L ALT (7-56) units/L Alkaline Phosphatase (35-129) units/L Total Protein (6.3-8.2) g/dL Albumin (3.9-5) g/dL - Imaging and Cardiology Echo: report reviewed EKG: report reviewed, image reviewed - EKG Interpretation EKG: no acute changes EKG interpretations - EKG Sinus rhythms and dysrhythmias: sinus tachycardia Repolarization changes or abnormalities: nonspecific abnormality, ST segment, and/or T wave Assessment and Plan ?Pneumonia Acute on Chronic HFrEF // CMP (EF 35-40% on echo this admission) EWA / ?CKD HTN DM Tobacco Abuse COPD Mild Tn Elevation Elevated D-dimer Plan: Continue IV diuresis with strict I/Os and close monitoring of renal indices. Start Coreg 6.25mg BID. No ACEI/ARB/ARNI due to renal fxn. Consider confirmatory testing for PE/DVT in light of elevated D-dimer. CE elevation likely represents non-ischemic myocardial injury in the setting of acutely decompensated HF and EWA. Pt denies chest pain. No acute ischemic ch anges on ECG. Await [facility] records. Pt seen in conjunction with Dr. Williamson, who agrees with the assessment and plan of care. - Patient Problems (1) Acute on chronic HFrEF (heart failure with reduced ejection fraction) Current Visit: Yes Status: Acute (2) EWA (acute kidney injury) Current Visit: Yes Status: Acute
[2021-05-28] MEDS: carvediloL 6.25 MG TAB PO SCH (22:21)
[2021-05-29] MEDS: IPRATROPIUM/ALBUTEROL SULFATE 3 ML AMPUL.NEB IH SCH ×5 (00:04→21:34)
[2021-05-29 06:27] LABS: Albumin 3.1 g/dL (3.9-5); Calcium 8.6 mg/dL (8.4-10.2)
[2021-05-29] MEDS: FUROSEMIDE 40 MG/4 ML INJ IV SCH ×2 (07:17→19:56)
[2021-05-29] MEDS: cefTRIAXone/NS 2 GM/100 ML 2 GM/100 ML BAG IV SCH (09:51)
[2021-05-29] MEDS: AZITHROMYCIN 250 MG TAB PO SCH (10:01)
[2021-05-29] MEDS: ASPIRIN 325 MG TAB PO SCH (10:01)
[2021-05-29] MEDS: carvediloL 6.25 MG TAB PO SCH ×2 (10:01→21:41)
--- NOTE | 2021-05-29 11:46 | Progress Note ---
Assessment and Plan Acute on CKD - F/u BUN/Cr on diuretics CKD - Stage3, continue f/u HTN - F/u on meds LE Edema - F/u urine output H/o CHF - F/u per Cardiology Pneumonia - F/u on abx H/o COPD - Stable Subjective Date of service: 05/29/21 Interval history: No new complaint Objective - Vital Signs Vital signs: Vital Signs - 12hr 05/29/21 05/29/21 05/29/21 00:05 00:10 00:23 Temperature 97.6 F Pulse Rate 97 H Pulse Rate [ 99 H Anterior Bilateral Throughout] Respiratory 20 Rate Respiratory 22 Rate [Anterior Bilateral Throughout] Blood Pressure 148/104 O2 Sat by Pulse 98 100 Oximetry 05/29/21 05/29/21 05/29/21 04:03 07:28 09:11 Temperature 97.4 F L 98.0 F Pulse Rate 94 H Pulse Rate [ 102 H Anterior Bilateral Throughout] Respiratory 20 18 Rate Respiratory 20 Rate [Anterior Bilateral Throughout] Blood Pressure 150/98 145/100 O2 Sat by Pulse 96 Oximetry 05/29/21 05/29/21 05/29/21 09:14 10:01 11:22 Temperature 98.3 F Pulse Rate 103 H Pulse Rate [ Anterior Bilateral Throughout] Respiratory 18 Rate Respiratory Rate [Anterior Bilateral Throughout] Blood Pressure 128/84 O2 Sat by Pulse 98 Oximetry - General Appearance General appearance: other (Awake & responsive) EENT: PERRL Neck: no JVD Respiratory: Present: Other (Good air entry) Cardiology: regular, S1S2 Gastrointestinal: normal Neurologic: no focal deficit - Lab 05/28/21 05:42 05/29/21 05:21 Most recent lab results ABG pH 7.371 pH Units (7.350-7.450) 05/27/21 17:19 ABG pCO2 50.0 mm Hg 05/27/21 17:19 ABG pO2 74.9 mm Hg (80.0-90.0) L 05/27/21 17:19 ABG HCO3 28.3 mmol/L (20.0-26.0) H 05/27/21 17:19 ABG O2 Saturation 95.2 % (95.0-99.0) 05/27/21 17:19 Calcium 8.6 mg/dL (8.4-10.2) 05/29/21 05:21 Phosphorus 3.10 mg/dL (2.5-4.5) 05/29/21 05:21 Magnesium 1.70 mg/dL (1.7-2.3) 05/29/21 05:21 Medications & Allergies - Medications Allergies/Adverse Reactions: Allergies No Known Allergies Allergy (Verified 05/27/21 18:06) Active Medications: Generic Name Dose Route Start Last Admin Trade Name Freq PRN Reason Stop Dose Admin Acetaminophen 650 mg 05/27/21 22:19 Acetaminophen 325 Mg Tab PO Q4H PRN Pain MILD(1-3)/Fever >100.5/BENOIT Albuterol/Ipratropium 1 ampul 05/29/21 00:00 05/29/21 09:11 Ipratropium/Albuterol Sulfate 3 Ml Ampul.Neb IH 1 ampul Q6HRT SONIA Administration Aspirin 325 mg 05/28/21 10:00 05/29/21 10:01 Aspirin 325 Mg Tab PO 325 mg QDAY SONIA Administration Azithromycin 500 mg 05/28/21 10:00 05/29/21 10:01 Azithromycin 250 Mg Tab PO 500 mg QDAY SONIA Administration Protocol Carvedilol 6.25 mg 05/28/21 22:00 05/29/21 10:01 Carvedilol 6.25 Mg Tab PO 6.25 mg BID SONIA Administration Furosemide 40 mg 05/28/21 06:00 05/29/21 07:17 Furosemide 40 Mg/4 Ml Inj IV 40 mg BID@0600,1800 SONIA Administration Ceftriaxone Sodium 2 gm in 100 mls @ 200 mls/hr 05/28/21 10:00 05/29/21 09:51 Rocephin/Ns 2 Gm/100 Ml IV 200 mls/hr Q24HR SONIA Administration Protocol Magnesium Hydroxide 30 ml 05/27/21 22:19 Magnesium Hydroxide (Mom) Oral Liqd Udc PO Q4H PRN Constipation Morphine Sulfate 2 mg 05/27/21 22:19 Morphine 2 Mg/1 Ml Inj IV Q4H PRN Pain, Moderate (4-6) Morphine Sulfate 4 mg 05/27/21 22:19 Morphine 4 Mg/1 Ml Inj IV Q4H PRN Pain , Severe (7-10) Morphine Sulfate 2 mg 05/27/21 22:19 Morphine 2 Mg/1 Ml Inj IV Q5MIN PRN Chest Pain unrelieved by NTG Nitroglycerin 0.4 mg 05/27/21 22:19 Nitroglycerin 0.4 Mg Tab Subl SL .Q5MIN PRN Chest Pain Ondansetron HCl 4 mg 05/27/21 22:19 Ondansetron 4 Mg/2 Ml Inj IV Q8H PRN Nausea And Vomiting Sodium Chloride 10 ml 05/28/21 10:00 05/29/21 10:04 Sodium Chloride 0.9% 10 Ml Flush Syringe IV 10 ml BID SONIA Administration Sodium Chloride 10 ml 05/27/21 22:19 Sodium Chloride 0.9% 10 Ml Flush Syringe IV PRN PRN LINE FLUSH
--- NOTE | 2021-05-29 11:46 | Electrocardiograph Report ---
[facility] Test Date: 2021-05-27 Test Time: 17:09:01 Pat Name: DIRK WRIGHT Department: Room: A454 1 Gender: M Rehabilitation Nurse: DEBO : 1960 Requested By: ARCHIE DUTTON Order Number: [id number] Reading MD: Alfredo Hilton Measurements Intervals [place] Rate: 114 P: 65 [place]: 142 QRS: -16 QRSD: 84 T: 111 QT: 359 QTc: 492 Interpretive Statements Sinus tachycardia Ventricular premature complex Probable left atrial enlargement Anteroseptal infarct, old Nonspecific T abnormalities, lateral leads No previous ECG available for comparison Electronically Signed On 05-29-2021 11:45:31 EST by Alfredo Hilton
--- NOTE | 2021-05-29 11:50 | Electrocardiograph Report ---
[facility] Test Date: 2021-05-28 Test Time: 07:58:01 Pat Name: DIRK WRIGHT Department: Room: A454 1 Gender: M Gourmet Coffee Attendant: REBEKAH : 1960 Requested By: RONAN PRICE Order Number: [id number] Reading MD: Alfredo Hilton Measurements Intervals [place] Rate: 105 P: 60 [place]: 142 QRS: 18 QRSD: 95 T: 124 QT: 393 QTc: 518 Interpretive Statements Sinus tachycardia Ventricular premature complex Probable left atrial enlargement Anteroseptal infarct, old Nonspecific T abnormalities, lateral leads Prolonged QT interval Compared to ECG 05/27/2021 17:09:01 Prolonged QT interval now present Myocardial infarct finding still present T-wave abnormality still present Electronically Signed On 05-29-2021 11:49:49 EST by Alfredo Hilton
--- NOTE | 2021-05-29 11:51 | Electrocardiograph Report ---
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 : 1960 Requested By: RONAN PRICE Order Number: [id number] Reading MD: Alfredo Hilton Measurements Intervals [place] Rate: 106 P: 64 [place]: 145 QRS: 13 QRSD: 90 T: 120 QT: 393 QTc: 520 Interpretive Statements Sinus tachycardia Atrial premature complexes Probable left atrial enlargement Probable anteroseptal infarct, old Nonspecific T abnormalities, lateral leads Prolonged QT interval Compared to ECG 05/28/2021 07:58:01 Atrial premature complex(es) now present Ventricular premature complex(es) no longer present Myocardial infarct finding still present T-wave abnormality still present Electronically Signed On 05-29-2021 11:50:51 EST by Alfredo Hilton
--- NOTE | 2021-05-29 18:18 | Progress Note ---
Assessment and Plan ?Pneumonia Acute on Chronic HFrEF // CMP (EF 35-40% on echo this admission) EWA / ?CKD HTN DM Tobacco Abuse COPD Mild Tn Elevation Elevated D-dimer Plan: Continue IV diuresis. Nephro following. Continue Coreg 6.25mg BID. No ACEI/ARB/ARNI due to renal fxn. Consider confirmatory testing for PE/DVT in light of elevated D-dimer. BLE Dopplers pending. CE elevation likely represents non-ischemic myocardial injury in the setting of acutely decompensated HF and EWA. Pt denies chest pain. No acute ischemic changes on ECG. No ischemic evaluation on file. Pt is typically followed by [facility]. Pt seen in conjunction with Dr. Williamson, who agrees with the assessment and plan of care. - Patient Problems (1) Acute on chronic HFrEF (heart failure with reduced ejection fraction) Current Visit: Yes Status: Acute (2) EWA (acute kidney injury) Current Visit: Yes Status: Acute Subjective Date of service: 05/29/21 Principal diagnosis: HFrEF Interval history: Breathing is a improving. Over 4L UOP today. Tele reviewed - SR/ST low 100s with PVCs and occasional 3-bt runs of NSVT. Objective Vital Signs Temp Pulse Pulse Resp Resp BP Pulse Ox 05/29/21 15:40 89 20 05/29/21 15:16 97.9 F 18 137/84 05/29/21 12:00 95 05/29/21 11:22 98.3 F 18 128/84 05/29/21 10:01 103 H 05/29/21 10:00 98 H 05/29/21 09:14 98 05/29/21 09:11 102 H 20 05/29/21 07:28 98.0 F 18 145/100 05/29/21 04:03 97.4 F L 94 H 20 150/98 96 05/29/21 00:23 97.6 F 97 H 20 148/104 100 05/29/21 00:10 98 05/29/21 00:05 99 H 22 05/28/21 22:55 111 H 164/102 05/28/21 22:21 111 H 164/102 05/28/21 21:55 95 05/28/21 21:36 100 H 05/28/21 20:42 97.4 F L 111 H 20 164/104 95 - Physical Examination General: No Apparent Distress HEENT: Positive: EOMI, Normocephaly Neck: Positive: neck supple, trachea midline Cardiac: Positive: Reg Rate and Rhythm, S1/S2 Lungs: Positive: Rales Neuro: Positive: Grossly Intact Abdomen: Positive: Soft. Negative: Tender Skin: Negative: Rash Musculoskeletal: No Pain Extremities: Present: edema (BLE), warm - Labs and Meds Cardiac Enzymes 05/29/21 Range/Units 05:21 AST 22 (5-40) units/L Comprehensive Metabolic Panel 05/29/21 Range/Units 05:21 Sodium 139 (137-145) mmol/L Potassium 4.5 (3.6-5.0) mmol/L Chloride 97.6 L (98-107) mmol/L Carbon Dioxide 27 (22-30) mmol/L BUN 54 H (9-20) mg/dL Creatinine 2.3 H (0.8-1.3) mg/dL Glucose 131 H (75-100) mg/dL Calcium 8.6 (8.4-10.2) mg/dL AST 22 (5-40) units/L ALT 17 (7-56) units/L Alkaline Phosphatase 159 H (35-129) units/L Total Protein 7.4 (6.3-8.2) g/dL Albumin 3.1 L (3.9-5) g/dL - Imaging and Cardiology EKG: report reviewed, image reviewed Echo: report reviewed - Telemetry EKG Rhythm: Sinus Rhythm - EKG Sinus rhythms and dysrhythmias: sinus tachycardia Repolarization changes or abnormalities: nonspecific abnormality, ST segment, and/or T wave
--- NOTE | 2021-05-29 22:30 | Progress Note ---
Assessment and Plan 61-year-old -[place] male with known history of COPD and congestive heart failure presented to the emergency room with a 2-day history of shortness of breath. Patient states he has been out of his diuretic for about 4 to 5 days. Upon arrival in the emergency room patient was tachycardic and tachypneic with elevated blood pressure. Work-up in the emergency room reveals chest x-ray with marked patchy bilateral lower lung opacities which could indicate atypical pneumonia. Labs shows a BNP of 6875, troponin of 0.063, BUN of 41 and creatinine of 2.7, UDS was negative. Patient was given some nebulizing treatments, steroids, IV Lasix and antibiotics in the emergency room and admitted for further management. Assessment and plan: --Acute on chronic CHF (congestive heart failure) exacerbation (EF 35-40% on echo this admission) Patient placed on diuretics. We will monitor inputs and outputs and also monitor daily weight. Cardiology following, monitor ins and O's daily weight --Pneumonia, versus pulmonary edema Patient placed on empiric IV antibiotics and diuretics. Negative for COVID-19. -- EWA (acute kidney injury) on CKD stage III Likely vasomotor nephropathy Baseline BUN and creatinine unknown. We will monitor. Consult placed to nephrology for evaluation and recommendations. -- Elevated troponin/NSTEMI type II Possibly troponin leak. No Ischemic changes on EKG We will trend troponin levels. Consult placed to cardiology for evaluation. -- History of COPD We will place on nebulizing treatments as needed and supplemental O2 --Elevated D-dimer, bilateral lower extremity Doppler and VQ scan ordered -- DVT prophylaxis Patient placed on subcutaneous heparin. -- Full code status Daily clinical course: 05/28: Patient is negative for Covid, continue nebulizer breathing treatment, IV diuresis, monitor ins and O's and daily weight. Continue supplemental O2 and wean off as tolerated. Continue to treat for CHF exacerbation. Cardiology following. 05/29: Continue IV diuretics, patient clinically improved. Ordered for confirmatory testing for PE/DVT in light of elevated D-dimer. Appreciate cardiology recommendation. Continue to follow clinically. Subjective Date of service: 05/29/21 Principal diagnosis: HFrEF Interval history: Patient seen and examined. Medical records and medication list reviewed. No acute event overnight noted by the RN. Patient complains of difficulty breathing even on resting. Patient is tolerating diet. Discussed plan of care at bedside with patient. Objective - Exam Narrative Exam: GENERAL: well-developed and well-nourished elderly -[place] male lying on bed appeared to be in no discomfort. HEENT: Normocephalic. Atraumatic. No conjunctival congestion or icterus. Patient has moist mucous membranes. NECK: Supple. Trachea midline. CHEST/LUNGS: Crackles auscultated bilaterally, breathing nonlabored. No wheezes HEART/CARDIOVASCULAR: Regular in rate and rhythm. S1 and S2 positive. ABDOMEN: Abdomen is soft, nontender. Patient has normal bowel sounds. SKIN: There is no rash. Warm and dry. NEURO: No focal motor deficit. Follows command. MUSCULOSKELETAL: No joint effusion or tenderness. EXTRIMITY: +ve edema, no cyanosis or clubbing. PSYCH: Cooperative. - Constitutional Vitals: Vital Signs - 12hr 05/29/21 05/29/21 05/29/21 11:22 12:00 15:16 Temperature 98.3 F 97.9 F Pulse Rate Pulse Rate [ Anterior Bilateral Throughout] Respiratory 18 18 Rate Respiratory Rate [Anterior Bilateral Throughout] Blood Pressure 128/84 137/84 O2 Sat by Pulse 95 Oximetry 05/29/21 05/29/21 05/29/21 15:40 19:18 21:00 Temperature 97.2 F L Pulse Rate 103 H Pulse Rate [ 89 102 H Anterior Bilateral Throughout] Respiratory 22 Rate Respiratory 20 20 Rate [Anterior Bilateral Throughout] Blood Pressure 148/106 O2 Sat by Pulse 98 Oximetry 05/29/21 05/29/21 21:34 21:41 Temperature Pulse Rate 103 H Pulse Rate [ Anterior Bilateral Throughout] Respiratory Rate Respiratory Rate [Anterior Bilateral Throughout] Blood Pressure 148/106 O2 Sat by Pulse 99 Oximetry - Labs CBC & Chem 7: 05/30/21 06:20 05/29/21 05:21 Labs: Abnormal lab results 05/29/21 05/29/21 05/29/21 Range/Units 05:21 07:28 11:27 Chloride 97.6 L (98-107) mmol/L BUN 54 H (9-20) mg/dL Creatinine 2.3 H (0.8-1.3) mg/dL Glucose 131 H (75-100) mg/dL POC Glucose 119 H 139 H (70-105) mg/dL Alkaline Phosphatase 159 H (35-129) units/L Albumin 3.1 L (3.9-5) g/dL 05/29/21 05/29/21 Range/Units 15:15 20:43 Chloride (98-107) mmol/L BUN (9-20) mg/dL Creatinine (0.8-1.3) mg/dL Glucose (75-100) mg/dL POC Glucose 226 H 123 H (70-105) mg/dL Alkaline Phosphatase (35-129) units/L Albumin (3.9-5) g/dL HEART Score - HEART Score Troponin: Troponin T 0.038 ng/mL (0.00-0.029) H D 05/28/21 05:42
[2021-05-30] MEDS ORDERED: hydrALAZINE 20 MG/1 ML INJ IV ONE (01:01)
[2021-05-30] MEDS: IPRATROPIUM/ALBUTEROL SULFATE 3 ML AMPUL.NEB IH SCH ×4 (04:33→21:03)
[2021-05-30] MEDS: FUROSEMIDE 40 MG/4 ML INJ IV SCH ×2 (05:24→20:10)
[2021-05-30 07:14] LABS: Basophils # (Auto) 0.1 K/mm3 (0.0-0.1); Eosinophils # (Auto) 0.1 K/mm3 (0.0-0.4); Eosinophils % (Auto) 1.6 % (0.0-4.3); Hematocrit 43.2 % (35.5-45.6); Hemoglobin 14.3 gm/dl (11.8-15.2); Lymphocytes # (Auto) 1.1 K/mm3 (1.2-5.4); Lymphocytes % (Auto) 18.6 % (13.4-35.0); Mean Corpuscular HGB Conc 33 % (32-34); Mean Corpuscular Volume 106 fl (84-94); Monocytes # (Auto) 0.5 K/mm3 (0.0-0.8); Monocytes % (Auto) 8.9 % (0.0-7.3); Platelet Count 259 K/mm3 (140-440); Red Blood Count 4.07 M/mm3 (3.65-5.03); Red Cell Distribution Width 16.7 % (13.2-15.2)
--- NOTE | 2021-05-30 07:16 | Vascular Lab Report ---
DUPLEX DOPPLER LOWER EXTREMITY VEINS, BILATERAL INDICATION / CLINICAL INFORMATION: possible DVT. TECHNIQUE: Duplex doppler imaging was performed through the veins of both lower extremities using rosendo ous compression and other maneuvers. COMPARISON: None available. FINDINGS: RIGHT COMMON FEMORAL VEIN: Negative. RIGHT FEMORAL VEIN: Negative. RIGHT POPLITEAL VEIN: Negative. RIGHT CALF VEINS: Negative. LEFT COMMON FEMORAL VEIN: Negative. LEFT FEMORAL VEIN: Negative. LEFT POPLITEAL VEIN: Negative. LEFT CALF VEINS: Negative. ADDITIONAL FINDINGS: Diffuse bilateral lower extremity edema. IMPRESSION: 1. No sonographic evidence for DVT in either lower extremity. Diffuse edema of the bilateral lower ex tremities. Signer Name: Brian Gore II, MD Signed: 05/30/2021 7:11 AM Workstation Name: [id number]
--- NOTE | 2021-05-30 10:14 | Nuclear Medicine Report ---
NUCLEAR MEDICINE PERFUSION SCAN INDICATION: possible PE. Shortness of breath cough. CORRELATION: AP chest dated 05/27/2021 RADIOPHARMACEUTICAL: Perfusion: 5.1 mCi Tc-99m MAA given IV FINDINGS: The perfusion images demonstrate multiple small perfusion defects in both lungs concerning for bilate ral pulmonary emboli. The cardiac shadow is unremarkable. IMPRESSION: High probability perfusion scan for pulmonary embolism. CRITICAL RESULT: Time of Discovery (CARE ASSOCIATE/CDT): 0900 hours Time of Communication (CARE ASSOCIATE/CDT): 0908 hours Licensed Practitioner Receiving Report: DANIEL Miguel Read-Back Performed: Yes. Signer Name: Mark Moss Jr, MD Signed: 05/30/2021 10:09 AM Workstation Name: [id number]
[2021-05-30] MEDS: carvediloL 6.25 MG TAB PO SCH ×2 (12:09→22:25)
[2021-05-30] MEDS: APIXABAN 5 MG TAB PO SCH ×2 (12:09→22:25)
--- NOTE | 2021-05-30 14:25 | Progress Note ---
Assessment and Plan 1. Acute kidney injury: EWA superimposed on CKD in the setting of decompensated CHF. Renal US negative for hydro. Monitor renal function. Creatinine level improving. Avoid nephrotoxic agents. Meds dosage based on GFR. 2. FEN: Monitor lytes and volume status. 3. Acute on Chronic HFrEF // CMP: EF 35-40% on echo this admission. On Coreg and diuretics. Strict intake and outputs, monitor daily weight. Cardiology following. 4. Pneumonia, versus pulmonary edema: Patient placed on empiric IV antibiotics and diuretics. Negative for COVID-19. Monitor. 5. Elevated troponin/NSTEMI type II: Possibly troponin leak. Followed by Cardiology. 6. History of COPD: Monitor. 7. Hyperglycemia: Monitor. Subjective: Patient was seen and examined at the bedside. Examination: General appearance: well-developed, appears stated age, not in distress HEENT: atraumatic, NILAM Neck: trachea midline Respiratory: ctab Heart: S1S2, regular, no murmur Abdomen: soft, obese, bowel sounds heard, NT Integumentary: no obvious rash Neurologic: AO, able to move extremities Ext: LE edema noted Subjective Date of service: 05/30/21 Principal diagnosis: HFrEF Objective - Vital Signs Vital signs: Vital Signs - 12hr 05/30/21 05/30/21 05/30/21 05:04 07:24 07:25 Temperature 98.0 F Pulse Rate 104 H Pulse Rate [ 108 H Anterior Bilateral Throughout] Respiratory 20 Rate Respiratory 20 Rate [Anterior Bilateral Throughout] Blood Pressure 156/107 Blood Pressure [Left] O2 Sat by Pulse 98 100 Oximetry 05/30/21 05/30/21 05/30/21 11:27 11:52 12:09 Temperature 98.7 F Pulse Rate 111 H 102 H 107 H Pulse Rate [ Anterior Bilateral Throughout] Respiratory 18 16 Rate Respiratory Rate [Anterior Bilateral Throughout] Blood Pressure 144/95 Blood Pressure 148/90 [Left] O2 Sat by Pulse 98 Oximetry 05/30/21 14:20 Temperature Pulse Rate Pulse Rate [ 101 H Anterior Bilateral Throughout] Respiratory Rate Respiratory 20 Rate [Anterior Bilateral Throughout] Blood Pressure Blood Pressure [Left] O2 Sat by Pulse Oximetry - Lab 05/30/21 06:20 05/29/21 05:21 Most recent lab results ABG pH 7.371 pH Units (7.350-7.450) 05/27/21 17:19 ABG pCO2 50.0 mm Hg 05/27/21 17:19 ABG pO2 74.9 mm Hg (80.0-90.0) L 05/27/21 17:19 ABG HCO3 28.3 mmol/L (20.0-26.0) H 05/27/21 17:19 ABG O2 Saturation 95.2 % (95.0-99.0) 05/27/21 17:19 Calcium 8.6 mg/dL (8.4-10.2) 05/29/21 05:21 Phosphorus 3.10 mg/dL (2.5-4.5) 05/29/21 05:21 Magnesium 1.70 mg/dL (1.7-2.3) 05/29/21 05:21 Medications & Allergies - Medications Allergies/Adverse Reactions: Allergies No Known Allergies Allergy (Verified 05/30/21 12:13) Home Medications: Home Medications Medication Instructions Recorded Confirmed Last Taken Type ALBUTEROL NEB's [Proventil 0.083% 2.5 mg IH Q6H PRN 05/30/21 05/30/21 Unknown History NEBS] Albuterol Sulfate [Proventil Hfa] 2 puff IH Q6H 05/30/21 05/30/21 Unknown History Aspirin EC [Halfprin EC] 81 mg PO QDAY 05/30/21 05/30/21 Unknown History AtorvaSTATin [Lipitor] 40 mg PO QHS 05/30/21 05/30/21 Unknown History Budesonide/Formoterol Fumarate 2 puff IH Q12H 05/30/21 05/30/21 Unknown History [Budesonide-Formoterol 160-4.5] Citalopram [celeXA] 20 mg PO QDAY 05/30/21 05/30/21 Unknown History Divalproex ER [DepaKOTE ER] 500 mg PO QPM 05/30/21 05/30/21 Unknown History Folic Acid 1 mg PO QDAY 05/30/21 05/30/21 Unknown History Hydralazine HCl 50 mg PO TID 05/30/21 05/30/21 Unknown History Loratadine 10 mg PO QDAY 05/30/21 05/30/21 Unknown History Torsemide [Demadex] 20 mg PO QDAY 05/30/21 05/30/21 Unknown History amLODIPine [Norvasc] 10 mg PO DAILY 05/30/21 05/30/21 Unknown History labetaloL [Labetalol 100mg TAB] 100 mg PO Q12H 05/30/21 05/30/21 Unknown History lisinopriL [Lisinopril] 10 mg PO QDAY 05/30/21 05/30/21 Unknown History Active Medications: Generic Name Dose Route Start Last Admin Trade Name Freq PRN Reason Stop Dose Admin Acetaminophen 650 mg 05/27/21 22:19 Acetaminophen 325 Mg Tab PO Q4H PRN Pain MILD(1-3)/Fever >100.5/BENOIT Albuterol/Ipratropium 1 ampul 05/29/21 00:00 05/30/21 14:20 Ipratropium/Albuterol Sulfate 3 Ml Ampul.Neb IH 1 ampul Q6HRT SONIA Administration Apixaban 10 mg 05/30/21 12:00 05/30/21 12:09 Apixaban 5 Mg Tab PO 06/05/21 22:01 10 mg Q12HR SONIA Administration Protocol Carvedilol 6.25 mg 05/28/21 22:00 05/30/21 12:09 Carvedilol 6.25 Mg Tab PO 6.25 mg BID SONIA Administration Furosemide 40 mg 05/28/21 06:00 05/30/21 05:24 Furosemide 40 Mg/4 Ml Inj IV 40 mg BID@0600,1800 SONIA Administration Hydralazine HCl 25 mg 05/30/21 14:00 Hydralazine 25 Mg Tab PO Q8HR [facility] Isosorbide Mononitrate 30 mg 05/30/21 14:00 Isosorbide Mononitrate Er 30 Mg Tab PO QDAY [facility] Magnesium Hydroxide 30 ml 05/27/21 22:19 Magnesium Hydroxide (Mom) Oral Liqd Udc PO Q4H PRN Constipation Morphine Sulfate 2 mg 05/27/21 22:19 Morphine 2 Mg/1 Ml Inj IV Q4H PRN Pain, Moderate (4-6) Morphine Sulfate 4 mg 05/27/21 22:19 Morphine 4 Mg/1 Ml Inj IV Q4H PRN Pain , Severe (7-10) Morphine Sulfate 2 mg 05/27/21 22:19 Morphine 2 Mg/1 Ml Inj IV Q5MIN PRN Chest Pain unrelieved by NTG Nitroglycerin 0.4 mg 05/27/21 22:19 Nitroglycerin 0.4 Mg Tab Subl SL .Q5MIN PRN Chest Pain Ondansetron HCl 4 mg 05/27/21 22:19 Ondansetron 4 Mg/2 Ml Inj IV Q8H PRN Nausea And Vomiting Sodium Chloride 10 ml 05/28/21 10:00 05/30/21 12:10 Sodium Chloride 0.9% 10 Ml Flush Syringe IV 10 ml BID SONIA Administration Sodium Chloride 10 ml 05/27/21 22:19 Sodium Chloride 0.9% 10 Ml Flush Syringe IV PRN PRN LINE FLUSH
--- NOTE | 2021-05-30 14:44 | Progress Note ---
Assessment and Plan Pt is a 61-year-old AA male with a hx of HF (unknown EF) who presented with complaints of progressively worsening SOB/orthopnea and BLE edema x 3 days Acute respiratory failure PE Acute on Chronic HFrEF // CMP (EF 35-40% on echo this admission) EWA on CKD HTN DM Tobacco Abuse NSTEMI type II Echo 05/27/2021-EF 35 to 40% impaired relaxation pattern. Right ventricle is normal in size. Right ventricular systolic function is normal. Mild aortic regurgitation. Plan: Continue IV diuresis. BMP in the a.m. nephro following. Continue Coreg 6.25mg BID. No ACEI/ARB/ARNI due to renal fxn. Patient remains hypertensive this a.m. Will initiate Imdur 30 mg p.o. daily and hydralazine 25 mg p.o. 3 times daily BLE Doppler studies negative. DVT V/Q perfusion scan shows high probability of PE. Initiate Eliquis for anticoagulation CE elevation likely represents non-ischemic myocardial injury in the setting of acutely decompensated HF and EWA. Pt denies chest pain. No acute ischemic changes on ECG. No ischemic evaluation on file. Pt is typically followed by [facility]. Due to acute PE unable to perform ischemic eval at this time Pt seen in conjunction with Dr. Flores, who agrees with the assessment and plan of care - Patient Problems (1) Acute respiratory failure Current Visit: Yes Status: Acute (2) Pulmonary embolism Current Visit: Yes Status: Acute (3) Hypertension Current Visit: Yes Status: Acute (4) EWA (acute kidney injury) Current Visit: Yes Status: Acute (5) Acute on chronic HFrEF (heart failure with reduced ejection fraction) Current Visit: Yes Status: Acute (6) Elevated troponin Current Visit: No Status: Acute (7) History of COPD Current Visit: No Status: Acute Subjective Date of service: 05/30/21 Principal diagnosis: HFrEF Interval history: Resting in bed in no acute distress. Sinus tach low 100s with PVCs Objective Vital Signs Temp Pulse Pulse Resp Resp BP BP 05/30/21 14:20 101 H 20 05/30/21 12:09 107 H 05/30/21 11:52 102 H 16 148/90 05/30/21 11:27 98.7 F 111 H 18 144/95 05/30/21 07:25 108 H 20 05/30/21 07:24 05/30/21 05:04 98.0 F 104 H 20 156/107 05/30/21 00:39 101 H 147/106 05/30/21 00:00 05/29/21 23:55 97.4 F L 101 H 18 147/106 05/29/21 22:00 101 H 05/29/21 21:41 103 H 148/106 05/29/21 21:34 05/29/21 21:00 102 H 20 05/29/21 19:18 97.2 F L 103 H 22 148/106 05/29/21 15:40 89 20 05/29/21 15:16 97.9 F 18 137/84 Pulse Ox 05/30/21 14:20 05/30/21 12:09 05/30/21 11:52 05/30/21 11:27 98 05/30/21 07:25 05/30/21 07:24 100 05/30/21 05:04 98 05/30/21 00:39 05/30/21 00:00 99 05/29/21 23:55 99 05/29/21 22:00 05/29/21 21:41 05/29/21 21:34 99 05/29/21 21:00 05/29/21 19:18 98 05/29/21 15:40 05/29/21 15:16 - Physical Examination General: No Apparent Distress HEENT: Positive: EOMI, Normocephaly Neck: Positive: neck supple, trachea midline Cardiac: Positive: Regular Rhythm, Tachycardia Lungs: Positive: Wheezes Neuro: Positive: Grossly Intact Abdomen: Positive: Soft. Negative: Tender Skin: Negative: Rash Musculoskeletal: No Pain Extremities: Present: upper extr. pulses, edema (BLE), warm - Labs and Meds CBC 05/30/21 Range/Units 06:20 WBC 6.2 (4.5-11.0) K/mm3 RBC 4.07 (3.65-5.03) M/mm3 Hgb 14.3 (11.8-15.2) gm/dl Hct 43.2 (35.5-45.6) % Plt Count 259 (140-440) K/mm3 Lymph # (Auto) 1.1 L (1.2-5.4) K/mm3 [place] # (Auto) 0.5 (0.0-0.8) K/mm3 Eos # (Auto) 0.1 (0.0-0.4) K/mm3 Baso # (Auto) 0.1 (0.0-0.1) K/mm3 - Imaging and Cardiology EKG: report reviewed, image reviewed Echo: report reviewed - Telemetry EKG Rhythm: Sinus Tachycardia - EKG Sinus rhythms and dysrhythmias: sinus tachycardia Repolarization changes or abnormalities: nonspecific abnormality, ST segment, and/or T wave
[2021-05-30 15:28] LABS: Hematocrit 39.6 % (35.5-45.6); Hemoglobin 13.3 gm/dl (11.8-15.2); Mean Corpuscular HGB Conc 34 % (32-34); Mean Corpuscular Volume 107 fl (84-94); Platelet Count 205 K/mm3 (140-440); Red Blood Count 3.69 M/mm3 (3.65-5.03); Red Cell Distribution Width 17.1 % (13.2-15.2)
[2021-05-30 15:34] LABS: INR 1.19 (0.87-1.13)
[2021-05-30 15:35] LABS: Partial Thromboplastin Time 32.3 Sec. (24.2-36.6)
--- NOTE | 2021-05-30 18:32 | Progress Note ---
Assessment and Plan 61-year-old -[place] male with known history of COPD and congestive heart failure presented to the emergency room with a 2-day history of shortness of breath. Patient states he has been out of his diuretic for about 4 to 5 days. Upon arrival in the emergency room patient was tachycardic and tachypneic with elevated blood pressure. Work-up in the emergency room reveals chest x-ray with marked patchy bilateral lower lung opacities which could indicate atypical pneumonia. Labs shows a BNP of 6875, troponin of 0.063, BUN of 41 and creatinine of 2.7, UDS was negative. Patient was given some nebulizing treatments, steroids, IV Lasix and antibiotics in the emergency room and admitted for further management. Assessment and plan: -- Acute PE, initiated on eliquis Elevated D-dimer, bilateral lower extremity Doppler negative VQ scan ordered: high probability for PE --Acute on chronic CHF (congestive heart failure) exacerbation (EF 35-40% on echo this admission) Patient placed on diuretics. We will monitor inputs and outputs and also monitor daily weight. Cardiology following, monitor ins and O's daily weight --Pneumonia, versus pulmonary edema Patient placed on empiric IV antibiotics and diuretics. Negative for COVID-19. -- EWA (acute kidney injury) on CKD stage III Likely vasomotor nephropathy Baseline BUN and creatinine unknown. We will monitor. Consult placed to nephrology for evaluation and recommendations. -- Elevated troponin/NSTEMI type II Possibly troponin leak and due to acute PE No Ischemic changes on EKG We will trend troponin levels. Consult placed to cardiology for evaluation. -- History of COPD cont on nebulizing treatments as needed and supplemental O2 -- DVT prophylaxis Patient placed on eliquis. -- Full code status Daily clinical course: 05/28: Patient is negative for Covid, continue nebulizer breathing treatment, IV diuresis, monitor ins and O's and daily weight. Continue supplemental O2 and wean off as tolerated. Continue to treat for CHF exacerbation. Cardiology following. 05/29: Continue IV diuretics, patient clinically improved. Ordered for confirmatory testing for PE/DVT in light of elevated D-dimer. Appreciate cardiology recommendation. Continue to follow clinically. 05/30: VQ scan suggestive for high probability for PE. Initiated on eliquis. per cardiology need ischemic workup as outpt as pt has active PE. cont diuresis, possible d/c in a day or two pending clinical improvement. Subjective Date of service: 05/30/21 Principal diagnosis: HFrEF Interval history: Patient seen and examined. Medical records and medication list reviewed. No acute event overnight noted by the RN. Patient states that his breathing improving. Patient is tolerating diet. VQ scan scan suggestive for PE Discussed plan of care at bedside with patient. Objective - Exam Narrative Exam: GENERAL: well-developed and well-nourished elderly -[place] male lying on bed appeared to be in no discomfort. HEENT: Normocephalic. Atraumatic. No conjunctival congestion or icterus. Patient has moist mucous membranes. NECK: Supple. Trachea midline. CHEST/LUNGS: Crackles auscultated bilaterally, breathing nonlabored. No wheezes HEART/CARDIOVASCULAR: Regular in rate and rhythm. S1 and S2 positive. ABDOMEN: Abdomen is soft, nontender. Patient has normal bowel sounds. SKIN: There is no rash. Warm and dry. NEURO: No focal motor deficit. Follows command. MUSCULOSKELETAL: No joint effusion or tenderness. EXTRIMITY: +ve edema, no cyanosis or clubbing. PSYCH: Cooperative. - Constitutional Vitals: Vital Signs - 12hr 05/30/21 05/30/21 05/30/21 07:24 07:25 11:27 Temperature 98.7 F Pulse Rate 111 H Pulse Rate [ 108 H Anterior Bilateral Throughout] Respiratory 18 Rate Respiratory 20 Rate [Anterior Bilateral Throughout] Blood Pressure 144/95 Blood Pressure [Left] O2 Sat by Pulse 100 98 Oximetry 05/30/21 05/30/21 05/30/21 11:52 12:09 14:20 Temperature Pulse Rate 102 H 107 H Pulse Rate [ 101 H Anterior Bilateral Throughout] Respiratory 16 Rate Respiratory 20 Rate [Anterior Bilateral Throughout] Blood Pressure Blood Pressure 148/90 [Left] O2 Sat by Pulse Oximetry 05/30/21 16:09 Temperature 98.7 F Pulse Rate 99 H Pulse Rate [ Anterior Bilateral Throughout] Respiratory 18 Rate Respiratory Rate [Anterior Bilateral Throughout] Blood Pressure 136/99 Blood Pressure [Left] O2 Sat by Pulse 93 Oximetry - Labs CBC & Chem 7: 05/30/21 14:55 05/31/21 04:17 Labs: Abnormal lab results 05/29/21 05/30/21 05/30/21 Range/Units 20:43 06:20 11:22 MCV 106 H (84-94) fl MCH 35 H (28-32) pg RDW 16.7 H (13.2-15.2) % [place] % (Auto) 8.9 H (0.0-7.3) % Lymph # (Auto) 1.1 L (1.2-5.4) K/mm3 PT (12.2-14.9) Sec. INR (0.87-1.13) Creatinine (0.8-1.3) mg/dL POC Glucose 123 H 128 H (70-105) mg/dL 05/30/21 05/30/21 05/30/21 Range/Units 14:55 14:55 14:55 MCV 107 H (84-94) fl MCH 36 H (28-32) pg RDW 17.1 H (13.2-15.2) % [place] % (Auto) (0.0-7.3) % Lymph # (Auto) (1.2-5.4) K/mm3 PT 16.5 H (12.2-14.9) Sec. INR 1.19 H (0.87-1.13) Creatinine 2.2 H (0.8-1.3) mg/dL POC Glucose (70-105) mg/dL HEART Score - HEART Score Troponin: Troponin T 0.038 ng/mL (0.00-0.029) H D 05/28/21 05:42
[2021-05-30] MEDS: hydrALAZINE 25 MG TAB PO SCH ×2 (20:11→22:28)
[2021-05-31] MEDS: IPRATROPIUM/ALBUTEROL SULFATE 3 ML AMPUL.NEB IH SCH ×3 (01:25→15:13)
[2021-05-31 05:07] LABS: Calcium 8.6 mg/dL (8.4-10.2)
[2021-05-31] MEDS: hydrALAZINE 25 MG TAB PO SCH ×2 (05:29→14:16)
[2021-05-31] MEDS: FUROSEMIDE 40 MG/4 ML INJ IV SCH (05:29)
--- NOTE | 2021-05-31 08:49 | Progress Note ---
Assessment and Plan Assessment and plan: 61-year-old -Chinese male with known history of COPD and congestive heart failure presented to the emergency room with a 2-day history of shortness of breath. Patient states he has been out of his diuretic for about 4 to 5 days. Upon arrival in the emergency room patient was tachycardic and tachypneic with elevated blood pressure. Work-up in the emergency room reveals chest x-ray with marked patchy bilateral lower lung opacities which could indicate atypical pneumonia. Labs shows a BNP of 6875, troponin of 0.063, BUN of 41 and creatinine of 2.7, UDS was negative. Patient was given some nebulizing treatments, steroids, IV Lasix and antibiotics in the emergency room and admitted for further management. Assessment and plan: -- Acute PE, initiated on eliquis Elevated D-dimer, bilateral lower extremity Doppler negative VQ scan ordered: high probability for PE --Acute on chronic CHF (congestive heart failure) exacerbation (EF 35-40% on echo this admission) Patient placed on diuretics. We will monitor inputs and outputs and also monitor daily weight. Cardiology following, monitor ins and O's daily weight --Pneumonia, versus pulmonary edema Patient placed on empiric IV antibiotics and diuretics. Negative for COVID-19. -- EWA (acute kidney injury) on CKD stage III Likely vasomotor nephropathy Baseline BUN and creatinine unknown. We will monitor. Consult placed to nephrology for evaluation and recommendations. -- Elevated troponin/NSTEMI type II Possibly troponin leak and due to acute PE No Ischemic changes on EKG We will trend troponin levels. Consult placed to cardiology for evaluation. -- History of COPD cont on nebulizing treatments as needed and supplemental O2 -- DVT prophylaxis Patient placed on eliquis. -- Full code status Daily clinical course: 05/28: Patient is negative for Covid, continue nebulizer breathing treatment, IV diuresis, monitor ins and O's and daily weight. Continue supplemental O2 and wean off as tolerated. Continue to treat for CHF exacerbation. Cardiology following. 05/29: Continue IV diuretics, patient clinically improved. Ordered for confirmatory testing for PE/DVT in light of elevated D-dimer. Appreciate cardiology recommendation. Continue to follow clinically. 05/30: VQ scan suggestive for high probability for PE. Initiated on eliquis. per cardiology need ischemic workup as outpt as pt has active PE. cont diuresis, possible d/c in a day or two pending clinical improvement. Hospitalist Physical - Constitutional Vitals: Temp Pulse Resp BP Pulse Ox 98.3 F 88 18 137/85 99 05/31/21 05:19 05/31/21 05:19 05/31/21 05:19 05/31/21 05:19 05/31/21 05:19 General appearance: Present: no acute distress HEART Score - HEART Score Troponin: Troponin T 0.038 ng/mL (0.00-0.029) H D 05/28/21 05:42 Results - Labs CBC & Chem 7: 05/30/21 14:55 05/31/21 04:17 Labs: Laboratory Last Values WBC 6.0 K/mm3 (4.5-11.0) 05/30/21 14:55 RBC 3.69 M/mm3 (3.65-5.03) 05/30/21 14:55 Hgb 13.3 gm/dl (11.8-15.2) 05/30/21 14:55 Hct 39.6 % (35.5-45.6) 05/30/21 14:55 MCV 107 fl (84-94) H 05/30/21 14:55 MCH 36 pg (28-32) H 05/30/21 14:55 MCHC 34 % (32-34) 05/30/21 14:55 RDW 17.1 % (13.2-15.2) H 05/30/21 14:55 Plt Count 205 K/mm3 (140-440) 05/30/21 14:55 Lymph % (Auto) 18.6 % (13.4-35.0) 05/30/21 06:20 [place] % (Auto) 8.9 % (0.0-7.3) H 05/30/21 06:20 Eos % (Auto) 1.6 % (0.0-4.3) 05/30/21 06:20 Baso % (Auto) 1.0 % (0.0-1.8) 05/30/21 06:20 Lymph # (Auto) 1.1 K/mm3 (1.2-5.4) L 05/30/21 06:20 [place] # (Auto) 0.5 K/mm3 (0.0-0.8) 05/30/21 06:20 Eos # (Auto) 0.1 K/mm3 (0.0-0.4) 05/30/21 06:20 Baso # (Auto) 0.1 K/mm3 (0.0-0.1) 05/30/21 06:20 Add Manual Diff Complete 05/28/21 05:42 Total Counted 100 05/28/21 05:42 Seg Neutrophils % 69.9 % (40.0-70.0) 05/30/21 06:20 Seg Neuts % (Manual) 91.0 % (40.0-70.0) H 05/28/21 05:42 Band Neutrophils % 4.0 % 05/28/21 05:42 Lymphocytes % (Manual) 4.0 % (13.4-35.0) L 05/28/21 05:42 Reactive Lymphs % (Man) 0 % 05/28/21 05:42 Monocytes % (Manual) 0 % (0.0-7.3) 05/28/21 05:42 Eosinophils % (Manual) 1.0 % (0.0-4.3) 05/28/21 05:42 Basophils % (Manual) 0 % (0.0-1.8) 05/28/21 05:42 Metamyelocytes % 0 % 05/28/21 05:42 Myelocytes % 0 % 05/28/21 05:42 Promyelocytes % 0 % 05/28/21 05:42 Blast Cells % 0 % 05/28/21 05:42 Nucleated RBC % Not Reportable 05/28/21 05:42 Seg Neutrophils # 4.3 K/mm3 (1.8-7.7) 05/30/21 06:20 Seg Neutrophils # Man 2.8 K/mm3 (1.8-7.7) 05/28/21 05:42 Band Neutrophils # 0.1 K/mm3 05/28/21 05:42 Lymphocytes # (Manual) 0.1 K/mm3 (1.2-5.4) L 05/28/21 05:42 Abs React Lymphs (Man) 0.0 K/mm3 05/28/21 05:42 Monocytes # (Manual) 0.0 K/mm3 (0.0-0.8) 05/28/21 05:42 Eosinophils # (Manual) 0.0 K/mm3 (0.0-0.4) 05/28/21 05:42 Basophils # (Manual) 0.0 K/mm3 (0.0-0.1) 05/28/21 05:42 Metamyelocytes # 0.0 K/mm3 05/28/21 05:42 Myelocytes # 0.0 K/mm3 05/28/21 05:42 Promyelocytes # 0.0 K/mm3 05/28/21 05:42 Blast Cells # 0.0 K/mm3 05/28/21 05:42 WBC Morphology Not Reportable 05/28/21 05:42 Hypersegmented Neuts Not Reportable 05/28/21 05:42 Hyposegmented Neuts Not Reportable 05/28/21 05:42 Hypogranular Neuts Not Reportable 05/28/21 05:42 Smudge Cells Not Reportable 05/28/21 05:42 Toxic Granulation Not Reportable 05/28/21 05:42 Toxic Vacuolation Not Reportable 05/28/21 05:42 Dohle Bodies Not Reportable 05/28/21 05:42 Pelger-Huet Anomaly Not Reportable 05/28/21 05:42 Jessica Rods Not Reportable 05/28/21 05:42 Platelet Estimate Consistent w auto 05/28/21 05:42 Clumped Platelets Not Reportable 05/28/21 05:42 Plt Clumps, EDTA Not Reportable 05/28/21 05:42 Large Platelets Not Reportable 05/28/21 05:42 Giant Platelets Not Reportable 05/28/21 05:42 Platelet Satelliting Not Reportable 05/28/21 05:42 Plt Morphology Comment Not Reportable 05/28/21 05:42 RBC Morphology Not Reportable 05/28/21 05:42 Dimorphic RBCs Not Reportable 05/28/21 05:42 Polychromasia Not Reportable 05/28/21 05:42 Hypochromasia Not Reportable 05/28/21 05:42 Poikilocytosis Not Reportable 05/28/21 05:42 Anisocytosis 1+ 05/28/21 05:42 Microcytosis Not Reportable 05/28/21 05:42 Macrocytosis Not Reportable 05/28/21 05:42 Spherocytes Not Reportable 05/28/21 05:42 Pappenheimer Bodies Not Reportable 05/28/21 05:42 Sickle Cells Not Reportable 05/28/21 05:42 Target Cells Not Reportable 05/28/21 05:42 Tear Drop Cells Not Reportable 05/28/21 05:42 Ovalocytes Not Reportable 05/28/21 05:42 Helmet Cells Not Reportable 05/28/21 05:42 Faith-Cullen Bodies Not Reportable 05/28/21 05:42 [place] Rings Not Reportable 05/28/21 05:42 Joe Cells Not Reportable 05/28/21 05:42 Bite Cells Not Reportable 05/28/21 05:42 Crenated Cell Not Reportable 05/28/21 05:42 Elliptocytes Not Reportable 05/28/21 05:42 Acanthocytes (Spur) Not Reportable 05/28/21 05:42 Rouleaux Not Reportable 05/28/21 05:42 Hemoglobin C Crystals Not Reportable 05/28/21 05:42 Schistocytes Not Reportable 05/28/21 05:42 Malaria parasites Not Reportable 05/28/21 05:42 Alfredo Bodies Not Reportable 05/28/21 05:42 Hem Pathologist Commnt No 05/28/21 05:42 PT 16.5 Sec. (12.2-14.9) H 05/30/21 14:55 INR 1.19 (0.87-1.13) H 05/30/21 14:55 APTT 32.3 Sec. (24.2-36.6) 05/30/21 14:55 D-Dimer 878.94 ng/mlDDU (0-234) H 05/28/21 05:42 ABG pH 7.371 pH Units (7.350-7.450) 05/27/21 17:19 ABG pCO2 50.0 mm Hg 05/27/21 17:19 ABG pO2 74.9 mm Hg (80.0-90.0) L 05/27/21 17:19 ABG HCO3 28.3 mmol/L (20.0-26.0) H 05/27/21 17:19 ABG O2 Saturation 95.2 % (95.0-99.0) 05/27/21 17:19 ABG O2 Content 15.8 (0.0-44) 05/27/21 17:19 ABG Base Excess 2.3 mmol/L (-2.0-3.0) 05/27/21 17:19 ABG Hemoglobin 12.3 gm/dl (14.0-18.0) L 05/27/21 17:19 ABG Carboxyhemoglobin 4.2 % (0.0-5.0) 05/27/21 17:19 ABG Methemoglobin 0.5 % (0.0-1.5) 05/27/21 17:19 Oxyhemoglobin 90.7 % (95.0-99.0) L 05/27/21 17:19 FiO2 32 % 05/27/21 17:19 Sodium 138 mmol/L (137-145) 05/31/21 04:17 Potassium 5.2 mmol/L (3.6-5.0) H 05/31/21 04:17 Chloride 97.4 mmol/L (98-107) L 05/31/21 04:17 Carbon Dioxide 29 mmol/L (22-30) 05/31/21 04:17 Anion Gap 17 mmol/L 05/31/21 04:17 BUN 49 mg/dL (9-20) H 05/31/21 04:17 Creatinine 2.1 mg/dL (0.8-1.3) H 05/31/21 04:17 Estimated GFR 39 ml/min 05/31/21 04:17 BUN/Creatinine Ratio 23 % 05/31/21 04:17 Glucose 109 mg/dL (75-100) H 05/31/21 04:17 POC Glucose 162 mg/dL (70-105) H 05/31/21 08:38 Calcium 8.6 mg/dL (8.4-10.2) 05/31/21 04:17 Phosphorus 3.10 mg/dL (2.5-4.5) 05/29/21 05:21 Magnesium 1.70 mg/dL (1.7-2.3) 05/29/21 05:21 Ferritin 154.0 ng/mL (30.0-300.0) 05/28/21 05:42 Total Bilirubin 0.50 mg/dL (0.1-1.2) 05/29/21 05:21 AST 22 units/L (5-40) 05/29/21 05:21 ALT 17 units/L (7-56) 05/29/21 05:21 Alkaline Phosphatase 159 units/L (35-129) H 05/29/21 05:21 Lactate Dehydrogenase 175 units/L (91-180) 05/28/21 05:42 Total Creatine Kinase 78 units/L (55-170) 05/27/21 17:34 CK-MB (CK-2) 4.5 ng/mL (0.0-4.0) H 05/27/21 17:34 CK-MB (CK-2) Rel Index 5.7 (0-4) H 05/27/21 17:34 Troponin T 0.038 ng/mL (0.00-0.029) H D 05/28/21 05:42 C-Reactive Protein 2.70 mg/dL (0.00-1.30) H 05/28/21 05:42 NT-Pro-B Natriuret Pep 6875 pg/mL (0-900) H 05/27/21 22:51 Total Protein 7.4 g/dL (6.3-8.2) 05/29/21 05:21 Albumin 3.1 g/dL (3.9-5) L 05/29/21 05:21 Albumin/Globulin Ratio 0.7 % 05/29/21 05:21 Triglycerides 113 mg/dL (2-149) 05/27/21 17:34 Cholesterol 153 mg/dL (50-199) 05/27/21 17:34 LDL Cholesterol Direct 72 mg/dL (50-130) 05/27/21 17:34 HDL Cholesterol 69 mg/dL (40-59) H 05/27/21 17:34 Cholesterol/HDL Ratio 2.21 % 05/27/21 17:34 Lipase 24 units/L (13-60) 05/27/21 17:34 Procalcitonin 0.44 ng/mL (<0.15) 05/28/21 05:42 Urine Color Straw (Yellow) 05/27/21 18:31 Urine Turbidity Clear (Clear) 05/27/21 18:31 Urine pH 6.0 (5.0-7.0) 05/27/21 18:31 Ur Specific [place] 1.005 (1.003-1.030) 05/27/21 18:31 Urine Protein 100 mg/dl mg/dL (Negative) 05/27/21 18:31 Urine Glucose (UA) Neg mg/dL (Negative) 05/27/21 18:31 Urine Ketones Neg mg/dL (Negative) 05/27/21 18:31 Urine Blood Sm (Negative) 05/27/21 18:31 Urine Nitrite Neg (Negative) 05/27/21 18:31 Urine Bilirubin Neg (Negative) 05/27/21 18:31 Urine Urobilinogen < 2.0 mg/dL (<2.0) 05/27/21 18:31 Ur Leukocyte Esterase Neg (Negative) 05/27/21 18:31 Urine WBC (Auto) 0.0 /HPF (0.0-6.0) 05/27/21 18:31 Urine RBC (Auto) < 1.0 /HPF (0.0-6.0) 05/27/21 18:31 Urine Opiates Screen Negative 05/27/21 18:31 Urine Methadone Screen Negative 05/27/21 18:31 Ur Barbiturates Screen Negative 05/27/21 18:31 Ur Phencyclidine Scrn Negative 05/27/21 18:31 Ur Amphetamines Screen Negative 05/27/21 18:31 U Benzodiazepines Scrn Negative 05/27/21 18:31 Urine Cocaine Screen Negative 05/27/21 18:31 U Marijuana (THC) Screen Negative 05/27/21 18:31 Drugs of Abuse Note Disclamer 05/27/21 18:31 Coronavirus (PCR) Negative (Negative) 05/28/21 08:30 [place]/IV: Voiding Method Urinal Active Medications - Current Medications Current Medications: Generic Name Dose Route Start Last Admin Trade Name Freq PRN Reason Stop Dose Admin Acetaminophen 650 mg 05/27/21 22:19 Acetaminophen 325 Mg Tab PO Q4H PRN Pain MILD(1-3)/Fever >100.5/BENOIT Albuterol/Ipratropium 1 ampul 05/29/21 00:00 05/31/21 01:25 Ipratropium/Albuterol Sulfate 3 Ml Ampul.Neb IH 1 ampul Q6HRT SONIA Administration Apixaban 10 mg 05/30/21 12:00 05/30/21 22:25 Apixaban 5 Mg Tab PO 06/05/21 22:01 10 mg Q12HR OSNIA Administration Protocol Carvedilol 6.25 mg 05/28/21 22:00 05/30/21 22:25 Carvedilol 6.25 Mg Tab PO 6.25 mg BID SONIA Administration Furosemide 40 mg 05/28/21 06:00 05/31/21 05:29 Furosemide 40 Mg/4 Ml Inj IV 40 mg BID@0600,1800 SONIA Administration Hydralazine HCl 25 mg 05/30/21 14:00 05/31/21 05:29 Hydralazine 25 Mg Tab PO 25 mg Q8HR SONIA Administration Isosorbide Mononitrate 30 mg 05/30/21 14:00 05/30/21 20:10 Isosorbide Mononitrate Er 30 Mg Tab PO 30 mg QDAY SONIA Administration Magnesium Hydroxide 30 ml 05/27/21 22:19 Magnesium Hydroxide (Mom) Oral Liqd Udc PO Q4H PRN Constipation Morphine Sulfate 2 mg 05/27/21 22:19 Morphine 2 Mg/1 Ml Inj IV Q4H PRN Pain, Moderate (4-6) Morphine Sulfate 4 mg 05/27/21 22:19 Morphine 4 Mg/1 Ml Inj IV Q4H PRN Pain , Severe (7-10) Morphine Sulfate 2 mg 05/27/21 22:19 Morphine 2 Mg/1 Ml Inj IV Q5MIN PRN Chest Pain unrelieved by NTG Nitroglycerin 0.4 mg 05/27/21 22:19 Nitroglycerin 0.4 Mg Tab Subl SL .Q5MIN PRN Chest Pain Ondansetron HCl 4 mg 05/27/21 22:19 Ondansetron 4 Mg/2 Ml Inj IV Q8H PRN Nausea And Vomiting Sodium Chloride 10 ml 05/28/21 10:00 05/30/21 22:27 Sodium Chloride 0.9% 10 Ml Flush Syringe IV 10 ml BID SONIA Administration Sodium Chloride 10 ml 05/27/21 22:19 Sodium Chloride 0.9% 10 Ml Flush Syringe IV PRN PRN LINE FLUSH
[2021-05-31] MEDS: carvediloL 6.25 MG TAB PO SCH (09:56)
[2021-05-31] MEDS: APIXABAN 5 MG TAB PO SCH (09:56)
[2021-05-31 12:07] VITALS: BP 145/91
--- NOTE | 2021-05-31 12:59 | Discharge Summary ---
Providers - Providers Date of Admission: 05/27/21 22:21 Date of discharge: 05/31/21 Attending physician: ARNEL OROZCO 05/27/21 Consult to Cardiac Rehabilitation [CONS] Routine Reason For Exam: Phase I 05/27/21 22:19 Consult to Physician [CONS] Routine Comment: Consulting Provider: GINA KERN Physician Instructions: Reason For Exam: EWA 05/27/21 22:21 Consult to Cardiology [CONS] Routine Consulting Provider: SOLANGE BLANKENSHIP Reason For Exam: CHF EXAC,ELEVATED TROPONIN 05/28/21 13:40 Physical Therapy Evaluation and Treat [CONS] Routine Comment: Reason For Exam: PT evaluate for gait Primary care physician: ZULAY SINHA Hospitalization Condition: Stable Hospital course: 61-year-old -[place] male with known history of COPD and congestive heart failure presented to the emergency room with a 2-day history of shortness of breath. Patient states he has been out of his diuretic for about 4 to 5 days. Upon arrival in the emergency room patient was tachycardic and tachypneic with elevated blood pressure. Work-up in the emergency room reveals chest x-ray with marked patchy bilateral lower lung opacities which could indicate atypical pneumonia. Labs shows a BNP of 6875, troponin of 0.063, BUN of 41 and creatinine of 2.7, UDS was negative. Patient was given some nebulizing treatments, steroids, IV Lasix and antibiotics in the emergency room and admitted for further management. Assessment and plan: -- Acute PE, initiated on eliquis Elevated D-dimer, bilateral lower extremity Doppler negative VQ scan ordered: high probability for PE --Acute on chronic CHF (congestive heart failure) exacerbation (EF 35-40% on echo this admission) Patient placed on diuretics. We will monitor inputs and outputs and also monitor daily weight. Cardiology following, monitor ins and O's daily weight --Pneumonia, versus pulmonary edema Patient placed on empiric IV antibiotics and diuretics. Negative for COVID-19. -- EWA (acute kidney injury) on CKD stage III Likely vasomotor nephropathy Baseline BUN and creatinine unknown. We will monitor. Consult placed to nephrology for evaluation and recommendations. -- Elevated troponin/NSTEMI type II Possibly troponin leak and due to acute PE No Ischemic changes on EKG We will trend troponin levels. Consult placed to cardiology for evaluation. -- History of COPD cont on nebulizing treatments as needed and supplemental O2 -- DVT prophylaxis Patient placed on eliquis. Disposition: 01 HOME / SELF CARE / HOMELESS Final Discharge Diagnosis (Prints w/discharge instructions): Acute pulmonary embolism. Venous Doppler negative for lower extremity DVT. Acute kidney injury superimposed on chronic kidney disease. Acute on chronic systolic congestive heart failure. Cardiomyopathy. Pneumonia received empiric antibiotics. Non-ST elevation OR type II. History of COPD. Hyperglycemia Time spent for discharge: 45 min Core Measure Documentation - Palliative Care Palliative Care/ Comfort Measures: Not Applicable - Core Measures Any of the following diagnoses?: DVT/PE - VTE Discharge Requirements Deep Vein Thrombosis/Pulmonary Embolism Present on Admission: Yes Has pt received <5 days of overlap therapy or INR<2.0: No (Not applicable /patient on Eliquis) Anticoagulant overlap therapy prescribed at discharge: No Contraindication No Overlap Therapy order at DC: Not Indicated (Patient is on Eliquis) Exam - Constitutional Vitals: Temp Pulse Resp BP Pulse Ox 98.4 F 110 H 18 145/91 98 05/31/21 11:40 05/31/21 11:40 05/31/21 11:40 05/31/21 11:40 05/31/21 12:00 General appearance: Present: no acute distress, well-nourished - EENT Eyes: Present: PERRL, EOM intact - Neck Neck: Present: supple, normal ROM - Respiratory Respiratory effort: normal Respiratory: bilateral: diminished, negative: rales, rhonchi, wheezing - Cardiovascular Rhythm: regular Heart Sounds: Present: S1 & S2 - Extremities Extremities: no ischemia, No edema - Abdominal General gastrointestinal: Present: soft, non-tender, non-distended, normal bowel sounds - Integumentary Integumentary: Present: clear, warm - Musculoskeletal Musculoskeletal: strength equal bilaterally - Psychiatric Psychiatric: appropriate mood/affect, cooperative - Neurologic Neurologic: CNII-XII intact Plan Activity: advance as tolerated Diet: other (Cardiac diet) Additional Instructions: 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 If you have worsening symptoms contact MD or go to nearest emergency room as needed. Advised to take Eliquis per schedule Follow up with: ZULAY SINHA MD [Primary Care Provider] - 7 Days JASON YEE MD [Staff Physician] - 7 Days Prescriptions: hydrALAZINE [Apresoline TAB] 25 mg PO Q8HR #90 tablet ISOSORBIDE MONOnitrate [Imdur ER] 30 mg PO QDAY #30 tablet Metoprolol [Lopressor TAB] 50 mg PO BID #60 tablet
[2021-05-31] MEDS ORDERED: METOPROLOL TARTRATE 50 MG TAB PO SCH (13:00)
--- NOTE | 2021-05-31 13:27 | Progress Note ---
Assessment and Plan 1. Acute kidney injury: EWA superimposed on CKD in the setting of decompensated CHF. Renal US negative for hydro. Monitor renal function. Creatinine level improving. Avoid nephrotoxic agents. Meds dosage based on GFR. 2. FEN: Hyperkalemia, Kayaxelate ordered. Monitor lytes and volume status. 3. Acute on Chronic HFrEF // CMP: EF 35-40% on echo this admission. On Coreg and diuretics. Strict intake and outputs, monitor daily weight. Cardiology following. 4. Pneumonia, versus pulmonary edema: S/p Abx. Negative for COVID-19. Monitor. 5. Elevated troponin/NSTEMI type II: Possibly troponin leak. Followed by Cardiology. 6. History of COPD: Monitor. 7. Hyperglycemia: Monitor. F/u in 1-2 weeks. Subjective: Patient was seen and examined at the bedside. Examination: General appearance: well-developed, appears stated age, not in distress HEENT: atraumatic, NILAM Neck: trachea midline Respiratory: ctab Heart: S1S2, regular, no murmur Abdomen: soft, obese, bowel sounds heard, NT Integumentary: no obvious rash Neurologic: AO, able to move extremities Ext: LE edema noted Subjective Date of service: 05/31/21 Principal diagnosis: HFrEF Objective - Vital Signs Vital signs: Vital Signs - 12hr 05/31/21 05/31/21 05/31/21 02:35 05:08 05:19 Temperature 97.4 F L 98.3 F Pulse Rate 127 H 88 Pulse Rate [ Anterior Bilateral Throughout] Respiratory 20 18 Rate Respiratory Rate [Anterior Bilateral Throughout] Blood Pressure 159/98 137/85 O2 Sat by Pulse 98 100 99 Oximetry 05/31/21 05/31/21 05/31/21 08:40 09:00 09:38 Temperature 98.5 F Pulse Rate 104 H Pulse Rate [ 108 H Anterior Bilateral Throughout] Respiratory 18 Rate Respiratory 18 Rate [Anterior Bilateral Throughout] Blood Pressure 144/89 O2 Sat by Pulse 97 96 Oximetry 05/31/21 05/31/21 05/31/21 09:56 10:00 11:40 Temperature 98.4 F Pulse Rate 104 H 108 H 110 H Pulse Rate [ Anterior Bilateral Throughout] Respiratory 18 Rate Respiratory Rate [Anterior Bilateral Throughout] Blood Pressure 144/89 145/91 O2 Sat by Pulse 95 Oximetry 05/31/21 12:00 Temperature Pulse Rate Pulse Rate [ Anterior Bilateral Throughout] Respiratory Rate Respiratory Rate [Anterior Bilateral Throughout] Blood Pressure O2 Sat by Pulse 98 Oximetry - Lab 05/30/21 14:55 05/31/21 04:17 Most recent lab results ABG pH 7.371 pH Units (7.350-7.450) 05/27/21 17:19 ABG pCO2 50.0 mm Hg 05/27/21 17:19 ABG pO2 74.9 mm Hg (80.0-90.0) L 05/27/21 17:19 ABG HCO3 28.3 mmol/L (20.0-26.0) H 05/27/21 17:19 ABG O2 Saturation 95.2 % (95.0-99.0) 05/27/21 17:19 Calcium 8.6 mg/dL (8.4-10.2) 05/31/21 04:17 Phosphorus 3.10 mg/dL (2.5-4.5) 05/29/21 05:21 Magnesium 1.70 mg/dL (1.7-2.3) 05/29/21 05:21 Medications & Allergies - Medications Allergies/Adverse Reactions: Allergies No Known Allergies Allergy (Verified 05/30/21 12:13) Home Medications: Home Medications Medication Instructions Recorded Confirmed Last Taken Type ALBUTEROL NEB's [Proventil 0.083% 2.5 mg IH Q6H PRN 05/30/21 05/30/21 Unknown History NEBS] Albuterol Sulfate [Proventil Hfa] 2 puff IH Q6H 05/30/21 05/30/21 Unknown History Aspirin EC [Halfprin EC] 81 mg PO QDAY 05/30/21 05/30/21 Unknown History AtorvaSTATin [Lipitor] 40 mg PO QHS 05/30/21 05/30/21 Unknown History Budesonide/Formoterol Fumarate 2 puff IH Q12H 05/30/21 05/30/21 Unknown History [Budesonide-Formoterol 160-4.5] Citalopram [Celexa] 20 mg PO QDAY 05/30/21 05/30/21 Unknown History Divalproex ER [Depakote ER] 500 mg PO QPM 05/30/21 05/30/21 Unknown History Folic Acid 1 mg PO QDAY 05/30/21 05/30/21 Unknown History Loratadine 10 mg PO QDAY 05/30/21 05/30/21 Unknown History Torsemide [Demadex] 20 mg PO QDAY 05/30/21 05/30/21 Unknown History Apixaban [Eliquis] 1 tab PO BID #60 05/31/21 Unknown Rx Apixaban [Eliquis] 2 tab PO BID #22 05/31/21 Unknown Rx Hydralazine HCl 50 mg PO TID #90 05/31/21 Unknown Rx ISOSORBIDE MONOnitrate [Imdur ER] 30 mg PO QDAY #30 tablet 05/31/21 Unknown Rx Metoprolol [Lopressor TAB] 50 mg PO BID #60 tablet 05/31/21 Unknown Rx Active Medications: Generic Name Dose Route Start Last Admin Trade Name Freq PRN Reason Stop Dose Admin Acetaminophen 650 mg 05/27/21 22:19 Acetaminophen 325 Mg Tab PO Q4H PRN Pain MILD(1-3)/Fever >100.5/BENOIT Albuterol/Ipratropium 1 ampul 05/29/21 00:00 05/31/21 09:37 Ipratropium/Albuterol Sulfate 3 Ml Ampul.Neb IH 1 ampul Q6HRT SONIA Administration Apixaban 10 mg 05/30/21 12:00 05/31/21 09:56 Apixaban 5 Mg Tab PO 06/05/21 22:01 10 mg Q12HR SONIA Administration Protocol Furosemide 40 mg 05/28/21 06:00 05/31/21 05:29 Furosemide 40 Mg/4 Ml Inj IV 40 mg BID@0600,1800 SONIA Administration Hydralazine HCl 25 mg 05/30/21 14:00 05/31/21 05:29 Hydralazine 25 Mg Tab PO 25 mg Q8HR SONIA Administration Isosorbide Mononitrate 30 mg 05/30/21 14:00 05/31/21 10:00 Isosorbide Mononitrate Er 30 Mg Tab PO 30 mg QDAY SONIA Administration Magnesium Hydroxide 30 ml 05/27/21 22:19 Magnesium Hydroxide (Mom) Oral Liqd Udc PO Q4H PRN Constipation Metoprolol Tartrate 50 mg 05/31/21 13:00 Metoprolol Tartrate 50 Mg Tab PO BID SONIA Morphine Sulfate 2 mg 05/27/21 22:19 Morphine 2 Mg/1 Ml Inj IV Q4H PRN Pain, Moderate (4-6) Morphine Sulfate 4 mg 05/27/21 22:19 Morphine 4 Mg/1 Ml Inj IV Q4H PRN Pain , Severe (7-10) Morphine Sulfate 2 mg 05/27/21 22:19 Morphine 2 Mg/1 Ml Inj IV Q5MIN PRN Chest Pain unrelieved by NTG Nitroglycerin 0.4 mg 05/27/21 22:19 Nitroglycerin 0.4 Mg Tab Subl SL .Q5MIN PRN Chest Pain Ondansetron HCl 4 mg 05/27/21 22:19 Ondansetron 4 Mg/2 Ml Inj IV Q8H PRN Nausea And Vomiting Sodium Chloride 10 ml 05/28/21 10:00 05/31/21 10:01 Sodium Chloride 0.9% 10 Ml Flush Syringe IV 10 ml BID SONIA Administration Sodium Chloride 10 ml 05/27/21 22:19 Sodium Chloride 0.9% 10 Ml Flush Syringe IV PRN PRN LINE FLUSH Sodium Polystyrene Sulfonate 15 gm 05/31/21 14:00 Sodium Polystyrene 15 Gm/60 Ml Oral Liqd PO 05/31/21 18:00 ONCE@1400 SONIA
--- NOTE | 2021-05-31 13:28 | Progress Note ---
Assessment and Plan Pt is a 61-year-old AA male with a hx of HF (unknown EF) who presented with complaints of progressively worsening SOB/orthopnea and BLE edema x 3 days Acute respiratory failure PE Acute on Chronic HFrEF // CMP (EF 35-40% on echo this admission) EWA on CKD HTN DM Tobacco Abuse NSTEMI type II Echo 05/27/2021-EF 35 to 40% impaired relaxation pattern. Right ventricle is normal in size. Right ventricular systolic function is normal. Mild aortic regurgitation. Plan: Patient appears near euvolemic Will convert to Lasix 40mg p.o. Due to tachycardia and PE will convert Coreg 6.25mg BID. To metoprolol 50 mg p.o. twice daily No ACEI/ARB/ARNI due to renal fxn. Patient BP has improved continue Imdur 30 mg p.o. daily and hydralazine 25 mg p.o. 3 times daily Continue Eliquis for anticoagulation Pt is typically followed by [facility]. Due to acute PE unable to perform ischemic eval at this time Cardiac status otherwise stable Patient requested to follow-up with our group. Patient has a follow-up with Dr. Williamson, [facility] labeling specialist, on 06/30/2021 at 3 PM in our [place] location. Phone #[phone] Pt seen in conjunction with Dr. Flores, who agrees with the assessment and plan of care - Patient Problems (1) Acute respiratory failure Current Visit: Yes Status: Acute (2) Pulmonary embolism Current Visit: Yes Status: Acute (3) Hypertension Current Visit: Yes Status: Acute (4) EWA (acute kidney injury) Current Visit: Yes Status: Acute (5) Acute on chronic HFrEF (heart failure with reduced ejection fraction) Current Visit: Yes Status: Acute (6) Elevated troponin Current Visit: No Status: Acute (7) History of COPD Current Visit: No Status: Acute Subjective Date of service: 05/31/21 Principal diagnosis: HFrEF Interval history: Resting in bed in no acute distress. Sinus tach low 110s-120s with PVCs Objective Vital Signs Temp Pulse Pulse Resp Resp BP Pulse Ox 05/31/21 12:00 98 05/31/21 11:40 98.4 F 110 H 18 145/91 95 05/31/21 10:00 108 H 05/31/21 09:56 104 H 144/89 05/31/21 09:38 96 05/31/21 09:00 108 H 18 05/31/21 08:40 98.5 F 104 H 18 144/89 97 05/31/21 05:19 98.3 F 88 18 137/85 99 05/31/21 05:08 97.4 F L 127 H 20 159/98 100 05/31/21 02:35 98 05/31/21 01:25 106 H 18 05/30/21 23:41 97.7 F 96 H 20 130/88 94 05/30/21 21:07 93 05/30/21 21:00 108 H 18 05/30/21 20:50 109 H 05/30/21 20:11 109 H 05/30/21 20:10 109 H 05/30/21 19:14 97.5 F L 102 H 20 140/93 96 05/30/21 16:09 98.7 F 99 H 18 136/99 93 05/30/21 14:20 101 H 20 - Physical Examination General: No Apparent Distress HEENT: Positive: EOMI, Normocephaly Neck: Positive: neck supple, trachea midline Cardiac: Positive: Regular Rhythm, Tachycardia Lungs: Positive: Decreased Breath Sounds Neuro: Positive: Grossly Intact Abdomen: Positive: Soft. Negative: Tender Skin: Negative: Rash Musculoskeletal: No Pain Extremities: Present: upper extr. pulses, edema (RLE), warm - Labs and Meds Coagulation 05/30/21 Range/Units 14:55 PT 16.5 H (12.2-14.9) Sec. INR 1.19 H (0.87-1.13) APTT 32.3 (24.2-36.6) Sec. CBC 05/30/21 Range/Units 14:55 WBC 6.0 (4.5-11.0) K/mm3 RBC 3.69 (3.65-5.03) M/mm3 Hgb 13.3 (11.8-15.2) gm/dl Hct 39.6 (35.5-45.6) % Plt Count 205 (140-440) K/mm3 Comprehensive Metabolic Panel 05/30/21 05/31/21 Range/Units 14:55 04:17 Sodium 138 (137-145) mmol/L Potassium 5.2 H (3.6-5.0) mmol/L Chloride 97.4 L (98-107) mmol/L Carbon Dioxide 29 (22-30) mmol/L BUN 49 H (9-20) mg/dL Creatinine 2.2 H 2.1 H (0.8-1.3) mg/dL Glucose 109 H (75-100) mg/dL Calcium 8.6 (8.4-10.2) mg/dL - Imaging and Cardiology EKG: report reviewed, image reviewed Echo: report reviewed - Telemetry EKG Rhythm: Sinus Tachycardia - EKG Sinus rhythms and dysrhythmias: sinus tachycardia Repolarization changes or abnormalities: nonspecific abnormality, ST segment, and/or T wave
[2021-05-31] MEDS ORDERED: SODIUM POLYSTYRENE 15 GM/60 ML ORAL LIQD PO SCH (14:00)
[2021-06-01] MEDS ORDERED: FUROSEMIDE 40 MG TAB PO SCH (10:00)
== END 2021-05-31 18:32 | disposition home or self-care (01) | DRG 280 ==
LOC: ED 16:36 → 4A 22:21
PROVIDERS: ADMIT Internal Medicine Geriatric Medicine; ATTEND Internal Medicine
DX: I13.0 Hypertensive heart and chronic kidney disease with heart failure and stage 1 through stage 4 chronic kidney disease, or unspecified chronic kidney disease (principal); I50.23 Acute on chronic systolic (congestive) heart failure; I21.A1 Myocardial infarction type 2; N17.0 Acute kidney failure with tubular necrosis; J96.01 Acute respiratory failure with hypoxia; J81.0 Acute pulmonary edema; J18.9 Pneumonia, unspecified organism; I26.99 Other pulmonary embolism without acute cor pulmonale; R77.8 Other specified abnormalities of plasma proteins; E11.22 Type 2 diabetes mellitus with diabetic chronic kidney disease; N18.30 Chronic kidney disease, stage 3 unspecified; Z20.822 Contact with and (suspected) exposure to COVID-19; F17.200 Nicotine dependence, unspecified, uncomplicated; J44.0 Chronic obstructive pulmonary disease with (acute) lower respiratory infection; I42.9 Cardiomyopathy, unspecified; E11.65 Type 2 diabetes mellitus with hyperglycemia; E87.5 Hyperkalemia
CPT/HCPCS: 36415; 71045; 76770; 78580; 80048; 80053; 80061; 80307; 81001; 82550; 82553; 82565; 82728; 82803; 82947; 82962; 83615; 83690; 83735; 83880; 84100; 84145; 84484; 85007; 85025; 85027; 85379; 85610; 85730; 86140; 93005; 93010; 93306; 93970; 94640; 94644; 94760; 99406; G0378; J3490; J9280; A9540; C8929; J0360; J0456; J0696; J1940; J2930; U0003